=== PATIENT | female | born 1960 | race Caucasian/White ===

== ENCOUNTER 2017-10-24 00:12 | Inpatient (IN) | payer OTHER ==
[2017-10-24] MEDS ORDERED: NORMAL SALINE 1000 ML 1,000 ML IV ONE ×2 (00:20→10:07)
--- NOTE | 2017-10-24 00:21 | ER Document Report ---
ED General - General Stated Complaint: POSSIBLE OVERDOSE Time Seen by Provider: 10/24/17 00:19 Notes: The patient is a 56-year-old female with a past medical history of depression and anxiety who presents by EMS after overdosing on bupropion and Ativan. This was an apparent suicide attempt. The patient apparently denied any additional coingestions. No additional history can be obtained as the patient is obtunded at time of arrival. - Related Data Allergies/Adverse Reactions: No Known Allergies Allergy (Unverified 10/24/17 01:29) Past Medical History - General Information source: Emergency Med Personnel - Social History Smoking Status: Never Smoker Frequency of alcohol use: None Drug Abuse: None Lives with: Family Family History: Reviewed & Not Pertinent Review of Systems - Review of Systems -: Yes ROS unobtainable due to patient's medical condition Physical Exam - Vital signs Vitals: Resp Pulse Ox 18 94 10/24/17 00:34 10/24/17 00:34 Interpretation: Normal Notes: PHYSICAL EXAMINATION: GENERAL: Lethargic, does not answer questions. HEAD: Atraumatic, normocephalic. EYES: Pupils equal round and reactive to light, extraocular movements intact, sclera anicteric, conjunctiva are normal. ENT: nares patent, oropharynx clear without exudates. Moderately dry mucous membranes. NECK: Normal range of motion, supple without lymphadenopathy LUNGS: Breath sounds clear to auscultation bilaterally and equal. No wheezes rales or rhonchi. HEART: Regular rate and rhythm without murmurs ABDOMEN: Soft, nontender, normoactive bowel sounds. No guarding, no rebound. No masses appreciated. EXTREMITIES: no pitting or edema. No cyanosis. NEUROLOGICAL: No focal neurological deficits. Moves all extremities spontaneously. PSYCH: Obtunded, lethargic SKIN: Warm, Dry, normal turgor, no rashes or lesions noted. Course - Re-evaluation Re-evalutation: 10/24/17 00:20 Patient arrives extremely sedated, very lethargic but does awake to noxious stimuli after overdosing on Lorazepam and bupropion. She has been placed immediately on a secured entrance monitor. Poison control be contacted. Seizure precautions will be maintained. We will obtain standard screening laboratories. The patient will require frequent reassessments that she is at risk for airway compromise and would require potential intubation if her mental status continues to deteriorate further. 0100-patient continues to wake to very loud voice or sternal rub but remains quite somnolent. No hypoxia or hypotension 10/24/17 02:03 The patient continues to be very sedated although does purposely grab my hand when I sternal rub her after approximately 5-10 seconds. She continues to be without hypoxia or hypoventilation. Will continue to monitor very closely. 10/24/17 03:07 Patient continues to be very somnolent but does continue to wake to noxious stimuli. She continues on telemetry. - Vital Signs Vital signs: Temp Pulse Resp BP Pulse Ox 14 97/62 L 93 10/24/17 01:58 10/24/17 01:58 10/24/17 01:58 - Laboratory Result Diagrams: 10/24/17 00:53 10/24/17 00:53 Laboratory results interpreted by me: 10/24/17 00:53 Sodium 146.1 H Chloride 111 H Est GFR (Non-Af Amer) 53 L Total Protein 6.0 L Salicylates < 1.0 L Acetaminophen < 10 L - EKG Interpretation by Me Additional EKG results interpreted by me: 10/24/17 03:07 Sinus rhythm. Rate 66. No ST elevations or depressions. QTC is 461. Critical Care Note - Critical Care Note Total time excluding time spent on procedures (mins): 38 Comments: Critical care time spent obtaining history from patient or surrogate, discussions with consultants, development of treatment plan with patient or surrogate, evaluation of patient's response to treatment, examination of patient , ordering and performing treatments and interventions, ordering and review of laboratory studies, re-evaluation of patient's condition, ordering and review of radiographic studies and review of old charts Discharge - Discharge Clinical Impression: Suicide attempt Polysubstance overdose Qualifiers: Encounter type: initial encounter Injury intent: intentional self-harm Qualified Code(s): T50.902A - Poisoning by unspecified drugs, medicaments and biological substances, intentional self-harm, initial encounter Altered mental status Qualifiers: Altered mental status type: stupor Qualified Code(s): R40.1 - Stupor
[2017-10-24 01:08] LABS: ABSOLUTE EOSINOPHILS # (AUTO) 0.1 10^3/uL (0.0-0.6); ABSOLUTE LYMPHOCYTES (AUTO) 1.5 10^3/uL (0.5-4.7); ABSOLUTE MONOCYTES (AUTO) 0.6 10^3/uL (0.1-1.4); BASOPHILS % (AUTO) 0.5 % (0-2); EOSINOPHILS % (AUTO) 1.2 % (0-6); HEMOGLOBIN 13.5 g/dL (12.0-15.5); LYMPHOCYTES % (AUTO) 24.3 % (13-45); MEAN CORPUSCULAR HEMOGLOBIN 31.9 pg (27.0-33.4); MEAN CORPUSCULAR HGB CONC 33.8 g/dL (32.0-36.0); MEAN CORPUSCULAR VOLUME 94 fl (80-97); MONOCYTES % (AUTO) 9.5 % (3-13); PLATELET COUNT 193 10^3/uL (150-450); RED BLOOD COUNT 4.24 10^6/uL (3.72-5.28); RED CELL DISTRIBUTION WIDTH 13.3 % (11.5-14.0); SEGMENTED NEUTROPHILS % (AUTO) 64.5 % (42-78); TOTAL CELLS COUNTED % (AUTO) 100 %; WHITE BLOOD COUNT 6.3 10^3/uL (4.0-10.5)
[2017-10-24 01:22] LABS: ACETAMINOPHEN < 10 ug/mL (10-30); ALANINE AMINOTRANSFERASE 28 U/L (9-52); ALBUMIN 3.9 g/dL (3.5-5.0); ALCOHOL 85 mg/dL (NONE DETECTED); ALKALINE PHOSPHATASE 53 U/L (38-126); ANION GAP 13 (5-19); ASPARTATE AMINO TRANSFERASE 23 U/L (14-36); BILIRUBIN,DIRECT 0.2 mg/dL (0.0-0.4); BILIRUBIN,TOTAL 0.2 mg/dL (0.2-1.3); BLOOD UREA NITROGEN 10 mg/dL (7-20); CARBON DIOXIDE 22 mmol/L (22-30); CHLORIDE 111 mmol/L (98-107); GLUCOSE 85 mg/dL (75-110); SALICYLATE < 1.0 mg/dL (2.0-20.0); SODIUM 146.1 mmol/L (137-145)
[2017-10-24] MEDS: NORMAL SALINE 1000 ML 1,000 ML IV PRN ×7 (07:00→23:51)
[2017-10-24] MEDS ORDERED: AMMONIA INHALANTS 10 AMPUL/BOX IH ONE ×2 (07:44→07:46)
--- NOTE | 2017-10-24 07:48 | EKG REPORT ---
SEVERITY:- ABNORMAL ECG - SINUS RHYTHM INCOMPLETE RIGHT BUNDLE BRANCH BLOCK : Confirmed by: Shawn Paige MD 24-Oct-2017 07:47:29
[2017-10-24] MEDS ORDERED: SUCCINYLCHOLINE CHLORIDE INJ 200 MG/10 ML VIAL IV ONE (07:51)
[2017-10-24] MEDS ORDERED: ETOMIDATE INJ/PF 20 MG/10 ML SDV IV ONE ×3 (07:51→12:08)
[2017-10-24] MEDS ORDERED: PROPOFOL 1,000 MG/100 ML INFUS..BTL IV PRN (07:52)
[2017-10-24] MEDS ORDERED: PROPOFOL INJ 200 MG/20 ML VIAL IV ONE (07:52)
--- NOTE | 2017-10-24 09:45 | RADIOLOGY REPORT (SQ) ---
EXAM DESCRIPTION: CHEST SINGLE VIEW COMPLETED DATE/TIME: 10/24/2017 8:28 am REASON FOR STUDY: post intubation COMPARISON: None. EXAM PARAMETERS: NUMBER OF VIEWS: One view. TECHNIQUE: Single frontal radiographic view of the chest acquired. RADIATION DOSE: NA LIMITATIONS: None. FINDINGS: LUNGS AND PLEURA: No opacities, masses or pneumothorax. No pleural effusion. MEDIASTINUM AND HILAR STRUCTURES: No masses. Contour normal. HEART AND VASCULAR STRUCTURES: Heart normal in size. Normal vasculature. BONES: No acute findings. HARDWARE: Endotracheal tube tip 4 cm above the reyna. Nasogastric tube tip and side port in the sto mach. OTHER: No other significant finding. IMPRESSION: Endotracheal tube and nasogastric tubes in good positioning. Cysts No focal infiltrates TECHNICAL DOCUMENTATION: JOB ID: [id number] [employer]- All Rights Reserved Reading location - IP/workstation name: [email or web address]
[2017-10-24 10:06] LABS: ARTERIAL BLOOD BASE EXCESS -3.2 mmol/L; ARTERIAL BLOOD FIO2 30%; ARTERIAL BLOOD H2CO3 1.44 mmol/L (1.05-1.35); ARTERIAL BLOOD HCO3 23.3 mmol/L (20-26); ARTERIAL BLOOD O2 SATURATION 60.8 % (94-98); ARTERIAL BLOOD PCO2 47.8 mmHg (35-45); ARTERIAL BLOOD PH 7.31 (7.35-7.45); ARTERIAL BLOOD TOTAL CO2 24.8 mmol/L (21-25)
[2017-10-24 10:07] LABS: ARTERIAL BLOOD PO2 34.8 mmHg (80-100)
[2017-10-24 10:10] LABS: APPEARANCE,URINE CLEAR; BILIRUBIN,URINE NEGATIVE (NEGATIVE); COLOR,URINE YELLOW; GLUCOSE, URINE NEGATIVE (NEGATIVE); KETONES,URINE NEGATIVE (NEGATIVE); LEUKOCYTE ESTERASE,URINE NEGATIVE (NEGATIVE); NITRITE,URINE NEGATIVE (NEGATIVE); PROTEIN,URINE NEGATIVE (NEGATIVE); URINE SPECIFIC GRAVITY 1.015; UROBILINOGEN,URINE NEGATIVE mg/dL (<2.0)
[2017-10-24 10:20] LABS: URINE AMPHETAMINES SCREEN NEGATIVE; URINE BARBITURATES SCREEN NEGATIVE; URINE BENZODIAZEPINES SCREEN NEGATIVE; URINE COCAINE SCREEN NEGATIVE; URINE MARIJUANA (THC) SCREEN NEGATIVE; URINE METHADONE SCREEN NEGATIVE; URINE PHENCYCLIDINE SCREEN NEGATIVE
[2017-10-24] MEDS ORDERED: NORMAL SALINE 1000 ML 1,000 ML IV PRN (10:22)
[2017-10-24] MEDS ORDERED: IPRATROPIUM/ALBUTEROL 0.5-2.5 MG/3 ML AMPUL NEB PRN (11:22)
[2017-10-24] MEDS ORDERED: ACETAMINOPHEN 650 MG SUPP.RECT PR PRN (11:22)
[2017-10-24] MEDS ORDERED: ONDANSETRON HCL INJ/PF 4 MG/2 ML SDV IV PRN (11:22)
--- NOTE | 2017-10-24 12:04 | PDOC CONSULTATION ---
Consultation Consult Date: 10/24/17 Attending physician:: UGO ANDRES Consult reason:: Overdose History of Present Illness Admission Date/PCP: 10/24/17 09:49 History of Present Illness: DASHA MATOS is a 56 year old female,Currently intubated and sedated having an overdose of Wellbutrin and being extremely lethargic without a gag reflex she was intubated in the emergency room. She has had a history of depression and was taking bupropion as well as Ativan.Initial concerns were prolongation of her QT on EKG after consultation with poison control sodium bicarbonate was initiated Past Medical History Cardiac Medical History: Reports: Hypertension Psychiatric Medical History: Reports: Depression Social History Information Source: [facility] Records Lives with: Family Smoking Status: Never Smoker - Advance Directive Resuscitation Status: Full Code Family History Parental Family History Reviewed: No Children Family History Reviewed: No Sibling(s) Family History Reviewed.: No Medication/Allergy Home Medications: Bupropion HCl [Wellbutrin Xl 150 mg 24hr Tablet] 150 mg PO DAILY 10/24/17 Bupropion HCl [Wellbutrin Xl 300mg 24hr Tablet] 300 mg PO DAILY 10/24/17 Lorazepam [Ativan 1 mg Tablet] 1 mg PO Q12HP PRN 10/24/17 Allergies/Adverse Reactions: No Known Allergies Allergy (Unverified 10/24/17 01:29) Review of Systems ROS unobtainable: Due to endotracheal tube, Due to mental status Physical Exam Vital Signs: Temp Pulse Resp BP Pulse Ox 95.3 F L 71 14 95/59 L 99 10/24/17 10:57 10/24/17 10:57 10/24/17 10:57 10/24/17 10:57 10/24/17 10:57 Intake & Output 10/23/17 10/24/17 10/25/17 06:59 06:59 06:59 Intake Total 2000 Output Total 800 Balance 1200 General appearance: PRESENT: no acute distress, disheveled, obese. ABSENT: cooperative Head exam: PRESENT: atraumatic, normocephalic Eye exam: PRESENT: conjunctiva pale. ABSENT: nystagmus, periorbital swelling, scleral icterus Mouth exam: PRESENT: dry mucosa, neck supple, tongue midline, other - ET tube in place Neck exam: ABSENT: carotid bruit, JVD, lymphadenopathy, thyromegaly, tracheal deviation, tracheostomy Respiratory exam: PRESENT: decreased breath sounds, prolonged expiratory phas, rales, rhonchi, unlabored. ABSENT: retraction, stridor Cardiovascular exam: PRESENT: RRR, +S1, tachycardia Pulses: PRESENT: normal radial pulses GI/Abdominal exam: PRESENT: hypoactive bowel sounds, soft - [id number] Gentrourinary exam: PRESENT: indwelling catheter Extremities exam: ABSENT: calf tenderness, clubbing, joint swelling Musculoskeletal exam: ABSENT: ambulatory, deformity, dislocation Neurological exam: ABSENT: awake, oriented to person Skin exam: PRESENT: dry, warm Results Impressions: Chest X-Ray 10/24/17 08:17 IMPRESSION: Endotracheal tube and nasogastric tubes in good positioning. Cysts No focal infiltrates Assessment & Plan - Diagnosis (1) Acute respiratory failure Is this a current diagnosis for this admission?: Yes Plan: Unable to protect airway no gag reflex (2) Bupropion overdose Is this a current diagnosis for this admission?: Yes Plan: Follow-up QT intervals every 4 hours bicarb as needed - Time Total Critical Time (Minutes): 55
[2017-10-24] MEDS ORDERED: SUCCINYLCHOLINE CHLORIDE INJ 200 MG/10 ML VIAL ONE (12:08)
[2017-10-24 12:21] LABS: ARTERIAL BLOOD BASE EXCESS -4.1 mmol/L; ARTERIAL BLOOD FIO2 40%; ARTERIAL BLOOD H2CO3 1.01 mmol/L (1.05-1.35); ARTERIAL BLOOD O2 SATURATION 80.5 % (94-98); ARTERIAL BLOOD PCO2 33.5 mmHg (35-45); ARTERIAL BLOOD PH 7.39 (7.35-7.45); ARTERIAL BLOOD PO2 44.3 mmHg (80-100)
--- NOTE | 2017-10-24 12:34 | RADIOLOGY REPORT (SQ) ---
EXAM DESCRIPTION: CT HEAD WITHOUT COMPLETED DATE/TIME: 10/24/2017 11:50 am REASON FOR STUDY: trauma and loss of consciousness COMPARISON: None. TECHNIQUE: Axial images acquired through the brain without intravenous contrast. Images reviewed wi th bone, brain and subdural windows. Additional sagittal and coronal reconstructions were generated. Images stored on PACS. All CT scanners at this facility use dose modulation, iterative reconstruction, and/or weight based d osing when appropriate to reduce radiation dose to as low as reasonably achievable (ALARA). [facility]: Dose Right [facility]: CareDose [facility]: Dose Right [facility]: Teradose 4D [facility]: [employer] RADIATION DOSE: CT Rad equipment meets quality standard of care and radiation dose reduction techniq ues were employed. CTDIvol: 53.2 mGy. DLP: 1017 mGy-cm. mGy. LIMITATIONS: None. FINDINGS: VENTRICLES: Normal size and contour. CEREBRUM: No masses. No hemorrhage. No midline shift. No evidence for acute infarction. Normal gra y/white matter differentiation. No areas of low density in the white matter. CEREBELLUM: No masses. No hemorrhage. No alteration of density. No evidence for acute infarction. EXTRAAXIAL SPACES: No fluid collections. No masses. ORBITS AND GLOBE: No intra- or extraconal masses. Normal contour of globe without masses. CALVARIUM: No fracture. PARANASAL SINUSES: No fluid or mucosal thickening. SOFT TISSUES: No mass or hematoma. OTHER: No other significant finding. IMPRESSION: NORMAL BRAIN CT WITHOUT CONTRAST. EVIDENCE OF ACUTE STROKE: NO. COMMENT: Quality ID # [id number]: Final reports with documentation of one or more dose reduction techniques (e.g., Automated exposure control, adjustment of the mA and/or kV according to patient size, use of iterative reconstruction technique) TECHNICAL DOCUMENTATION: JOB ID: [id number] [employer]- All Rights Reserved Reading location - IP/workstation name: [email or web address]
[2017-10-24 12:58] LABS: ARTERIAL BLOOD BASE EXCESS -5.4 mmol/L; ARTERIAL BLOOD H2CO3 0.81 mmol/L (1.05-1.35); ARTERIAL BLOOD HCO3 17.5 mmol/L (20-26); ARTERIAL BLOOD O2 SATURATION 98.2 % (94-98); ARTERIAL BLOOD PCO2 26.8 mmHg (35-45); ARTERIAL BLOOD PH 7.43 (7.35-7.45); ARTERIAL BLOOD PO2 109.1 mmHg (80-100); ARTERIAL BLOOD TOTAL CO2 18.3 mmol/L (21-25)
[2017-10-24 12:59] LABS: ARTERIAL BLOOD FIO2 28%
[2017-10-24] MEDS: PANTOPRAZOLE SODIUM 40 MG VIAL IV SCH ×2 (13:46→23:08)
--- NOTE | 2017-10-24 14:10 | PSYCHOLOGICAL NOTE ---
Psych Note - Psych Note Psych Note: Reason for consult: Intentional overdose Alfonzo Lee, , The patient is a 56-year-old female with a past medical history of depression and anxiety who presents by EMS after overdosing on bupropion and Ativan. This was an apparent suicide attempt. Patient is currently intubated, please contact behavioral health team upon extubating for evaluation and possible IVC paperwork.
[2017-10-24] MEDS ORDERED: LORAZEPAM INJ 2 MG/1 ML VIAL IV PRN (15:01)
--- NOTE | 2017-10-24 15:02 | PDOC H&P ---
History of Present Illness Admission Date/PCP: 10/24/17 09:49 Out of town, patient lives in [place] Psychiatrist Dr. Fleming Patient complains of: Intentional drug overdose, suicide attempt History of Present Illness: DASHA MATOS is a 56 year old female who was brought in by EMS after she swallowed 100 tablets of Wellbutrin and an unknown amount of Ativan. The patient was very somnolent on admission with minimal response to sternal rub. She did not have a gag reflex and was intubated for airway protection. The patient was hypothermic and was given warm IV fluids and David hugger placed. I spoke to her Mr. Alfonzo Matos, phone #[phone]. He states that the patient has a long history of schizophrenia, bipolar disorder , OCD and depression and anxiety. He is stated that she did not smoke and only drank alcohol occasionally. Last night they were socializing with relatives and she drank 4-5 glasses of wine. Around midnight she had an argument with her and became very angry stormed out and swallowed her pills. She asked her family to call EMS. Poison control recommended monitoring the EKG every 4 hours and to treat with IV bicarb for QRS duration 140 or greater. Past Medical History Cardiac Medical History: Reports: Hypertension Psychiatric Medical History: Reports: Depression, Schizoaffective Disorder Social History Lives with: Family Smoking Status: Never Smoker Frequency of Alcohol Use: Occasional Hx Recreational Drug Use: No - Advance Directive Resuscitation Status: Full Code Family History Family History: Hypertension Parental Family History Reviewed: No - Unable to patient intubated Children Family History Reviewed: No Sibling(s) Family History Reviewed.: No Medication/Allergy Home Medications: Bupropion HCl [Wellbutrin Xl 150 mg 24hr Tablet] 150 mg PO DAILY 10/24/17 Bupropion HCl [Wellbutrin Xl 300mg 24hr Tablet] 300 mg PO DAILY 10/24/17 Lorazepam [Ativan 1 mg Tablet] 1 mg PO Q12HP PRN 10/24/17 Allergies/Adverse Reactions: No Known Allergies Allergy (Unverified 10/24/17 01:29) Review of Systems ROS unobtainable: Due to endotracheal tube Physical Exam Vital Signs: Temp Pulse Resp BP Pulse Ox 97.2 F 81 14 111/77 100 10/24/17 12:00 10/24/17 12:00 10/24/17 14:00 10/24/17 13:48 10/24/17 14:00 Intake & Output 10/23/17 10/24/17 10/25/17 06:59 06:59 06:59 Intake Total 2000 Output Total 1300 Balance 700 Weight 78.8 kg General appearance: PRESENT: well-developed, well-nourished Head exam: PRESENT: normocephalic Eye exam: PRESENT: PERRLA. ABSENT: scleral icterus Ear exam: PRESENT: normal external ear exam Neck exam: PRESENT: other - endotracheal tube Respiratory exam: PRESENT: symmetrical, unlabored. ABSENT: wheezes Cardiovascular exam: PRESENT: RRR GI/Abdominal exam: PRESENT: normal bowel sounds, soft. ABSENT: tenderness Rectal exam: PRESENT: deferred Neurological exam: PRESENT: other - no response to sternal rub Skin exam: ABSENT: petechiae Results Laboratory Results: 10/24/17 10/24/17 12:00 12:50 Carbonic Acid 1.01 L 0.81 L HCO3/H2CO3 Ratio 19:1 21:1 ABG pH 7.39 7.43 ABG pCO2 33.5 L 26.8 L ABG pO2 44.3 L 109.1 H ABG HCO3 20.0 17.5 L ABG O2 Saturation 80.5 L 98.2 H ABG Base Excess -4.1 -5.4 FiO2 40% 28% Impressions: Head CT 10/24/17 00:00 IMPRESSION: NORMAL BRAIN CT WITHOUT CONTRAST. EVIDENCE OF ACUTE STROKE: NO. Chest X-Ray 10/24/17 08:17 IMPRESSION: Endotracheal tube and nasogastric tubes in good positioning. Cysts No focal infiltrates Assessment & Plan - Diagnosis (1) Acute respiratory failure Qualifiers: Respiratory failure complication: hypoxia Qualified Code(s): J96.01 - Acute respiratory failure with hypoxia Is this a current diagnosis for this admission?: Yes Plan: Due to intentional medication overdose. Continue to monitor on ventilator. Pulmonology consult requested. (2) Bupropion overdose Is this a current diagnosis for this admission?: Yes Plan: Seizure precautions. Monitor EKG. Continue IV fluids. (3) Polysubstance overdose Qualifiers: Encounter type: initial encounter Injury intent: intentional self-harm Qualified Code(s): T50.902A - Poisoning by unspecified drugs, medicaments and biological substances, intentional self-harm, initial encounter Is this a current diagnosis for this admission?: Yes Plan: As above. (4) Suicide attempt Is this a current diagnosis for this admission?: Yes Plan: Patient has been involuntarily committed. Psych eval after extubation. - Time Time Spent: Greater than 70 Minutes
[2017-10-24 15:43] LABS: ABSOLUTE EOSINOPHILS # (AUTO) 0.1 10^3/uL (0.0-0.6); ABSOLUTE LYMPHOCYTES (AUTO) 1.2 10^3/uL (0.5-4.7); ABSOLUTE MONOCYTES (AUTO) 0.8 10^3/uL (0.1-1.4); ABSOLUTE NEUT (AUTO) 6.7 10^3/uL (1.7-8.2); BASOPHILS % (AUTO) 0.3 % (0-2); EOSINOPHILS % (AUTO) 0.6 % (0-6); HEMATOCRIT 37.7 % (36.0-47.0); HEMOGLOBIN 12.5 g/dL (12.0-15.5); LYMPHOCYTES % (AUTO) 14.1 % (13-45); MEAN CORPUSCULAR HEMOGLOBIN 31.8 pg (27.0-33.4); MEAN CORPUSCULAR HGB CONC 33.3 g/dL (32.0-36.0); MEAN CORPUSCULAR VOLUME 96 fl (80-97); PLATELET COUNT 164 10^3/uL (150-450); RED BLOOD COUNT 3.94 10^6/uL (3.72-5.28); RED CELL DISTRIBUTION WIDTH 13.7 % (11.5-14.0); TOTAL CELLS COUNTED % (AUTO) 100 %; WHITE BLOOD COUNT 8.9 10^3/uL (4.0-10.5)
--- NOTE | 2017-10-24 16:43 | EKG REPORT ---
SEVERITY:- ABNORMAL ECG - SINUS RHYTHM IVCD, CONSIDER ATYPICAL RBBB NONSPECIFIC ST-T CHANGES- INFERIOR LEADS : Confirmed by: Shawn Paige MD 24-Oct-2017 16:43:03
--- NOTE | 2017-10-24 16:44 | EKG REPORT ---
SEVERITY:- ABNORMAL ECG - SINUS RHYTHM IVCD, CONSIDER ATYPICAL RBBB : Confirmed by: Shawn Paige MD 24-Oct-2017 16:43:29
--- NOTE | 2017-10-24 16:44 | EKG REPORT ---
SEVERITY:- ABNORMAL ECG - SINUS RHYTHM INCOMPLETE RIGHT BUNDLE BRANCH BLOCK : Confirmed by: Shawn Paige MD 24-Oct-2017 16:43:18
[2017-10-24 17:40] LABS: ALANINE AMINOTRANSFERASE 35 U/L (9-52); ALKALINE PHOSPHATASE 50 U/L (38-126); ANION GAP 9 (5-19); ASPARTATE AMINO TRANSFERASE 38 U/L (14-36); BILIRUBIN,DIRECT 0.2 mg/dL (0.0-0.4); BILIRUBIN,TOTAL 0.2 mg/dL (0.2-1.3); BLOOD UREA NITROGEN 8 mg/dL (7-20); CALCIUM 8.2 mg/dL (8.4-10.2); CARBON DIOXIDE 18 mmol/L (22-30); CHLORIDE 116 mmol/L (98-107); GLUCOSE 75 mg/dL (75-110); POTASSIUM 3.8 mmol/L (3.6-5.0); SODIUM 143.3 mmol/L (137-145); TOTAL PROTEIN 5.1 g/dL (6.3-8.2)
[2017-10-24] MEDS: PROPOFOL 1,000 MG/100 ML INFUS..BTL IV PRN (23:08)
--- NOTE | 2017-10-25 00:11 | EKG REPORT ---
SEVERITY:- ABNORMAL ECG - SINUS RHYTHM INCOMPLETE RIGHT BUNDLE BRANCH BLOCK : Confirmed by: Shawn Paige MD 25-Oct-2017 00:11:02
[2017-10-25] MEDS ORDERED: SODIUM BICARBONATE 8.4% INJ 50 MEQ/50 ML DISP.SYRIN ONE ×2 (03:13→19:54)
[2017-10-25] MEDS ORDERED: SODIUM BICARBONATE 8.4% INJ 50 MEQ/50 ML DISP.SYRIN IV ONE ×2 (03:15→20:00)
[2017-10-25 04:09] LABS: ABSOLUTE LYMPHOCYTES (AUTO) 1.3 10^3/uL (0.5-4.7); ABSOLUTE NEUT (AUTO) 9.6 10^3/uL (1.7-8.2); BASOPHILS % (AUTO) 0.3 % (0-2); EOSINOPHILS % (AUTO) 0.3 % (0-6); HEMATOCRIT 37.4 % (36.0-47.0); HEMOGLOBIN 12.7 g/dL (12.0-15.5); MEAN CORPUSCULAR HEMOGLOBIN 31.9 pg (27.0-33.4); MEAN CORPUSCULAR HGB CONC 33.9 g/dL (32.0-36.0); MEAN CORPUSCULAR VOLUME 94 fl (80-97); PLATELET COUNT 151 10^3/uL (150-450); RED BLOOD COUNT 3.97 10^6/uL (3.72-5.28); RED CELL DISTRIBUTION WIDTH 13.3 % (11.5-14.0); SEGMENTED NEUTROPHILS % (AUTO) 80.4 % (42-78); TOTAL CELLS COUNTED % (AUTO) 100 %; WHITE BLOOD COUNT 11.9 10^3/uL (4.0-10.5)
[2017-10-25 04:17] LABS: INTERNATIONAL RATION (INR) 0.96; PROTHROMBIN TIME 13.3 SEC (11.4-15.4)
[2017-10-25 04:18] LABS: PARTIAL THROMBOPLASTIN TIME 28.6 SEC (23.5-35.8)
[2017-10-25 04:35] LABS: ALANINE AMINOTRANSFERASE 35 U/L (9-52); ALKALINE PHOSPHATASE 52 U/L (38-126); ANION GAP 10 (5-19); ASPARTATE AMINO TRANSFERASE 35 U/L (14-36); BILIRUBIN,DIRECT 0.3 mg/dL (0.0-0.4); BILIRUBIN,TOTAL 0.3 mg/dL (0.2-1.3); BLOOD UREA NITROGEN 8 mg/dL (7-20); CALCIUM 8.5 mg/dL (8.4-10.2); CARBON DIOXIDE 20 mmol/L (22-30); CHLORIDE 114 mmol/L (98-107); CREATINE KINASE 656 U/L (30-135); GLUCOSE 79 mg/dL (75-110); LIPASE 44.6 U/L (23-300); PHOSPHORUS 3.1 mg/dL (2.5-4.5); POTASSIUM 3.5 mmol/L (3.6-5.0); SODIUM 144.1 mmol/L (137-145); TOTAL PROTEIN 5.1 g/dL (6.3-8.2); TRIGLYCERIDES 156 mg/dL (<150)
[2017-10-25 05:20] LABS: ARTERIAL BLOOD FIO2 28%; ARTERIAL BLOOD H2CO3 0.87 mmol/L (1.05-1.35); ARTERIAL BLOOD HCO3 20.6 mmol/L (20-26); ARTERIAL BLOOD O2 SATURATION 97.9 % (94-98); ARTERIAL BLOOD PH 7.47 (7.35-7.45); ARTERIAL BLOOD PO2 98.5 mmHg (80-100); ARTERIAL BLOOD TOTAL CO2 21.5 mmol/L (21-25)
[2017-10-25] MEDS: NORMAL SALINE 1000 ML 1,000 ML IV PRN ×3 (06:41→19:57)
--- NOTE | 2017-10-25 08:10 | RADIOLOGY REPORT (SQ) ---
EXAM DESCRIPTION: CHEST SINGLE VIEW COMPLETED DATE/TIME: 10/25/2017 6:47 am REASON FOR STUDY: resp failure COMPARISON: AP chest 10/24/2017, 0824 hours EXAM PARAMETERS: NUMBER OF VIEWS: One view. TECHNIQUE: Single frontal radiographic view of the chest acquired. RADIATION DOSE: NA LIMITATIONS: None. FINDINGS: LUNGS AND PLEURA: Minimal left retrocardiac airspace disease likely atelectasis. Lungs ot herwise clear. No pleural effusion or pneumothorax. MEDIASTINUM AND HILAR STRUCTURES: No masses. Contour normal. HEART AND VASCULAR STRUCTURES: Heart normal in size. Normal vasculature. BONES: No acute findings. HARDWARE: Endotracheal tube, nasogastric tube in good positioning OTHER: No other significant finding. IMPRESSION: Tubes in good positioning. Minimal left retrocardiac airspace disease, stable TECHNICAL DOCUMENTATION: JOB ID: [id number] [employer]- All Rights Reserved Reading location - IP/workstation name: [email or web address]
--- NOTE | 2017-10-25 08:22 | EKG REPORT ---
SEVERITY:- ABNORMAL ECG - SINUS RHYTHM INCOMPLETE RIGHT BUNDLE BRANCH BLOCK QRS DURATION [address]-T CHANGES- INFERIOR LEADS : Confirmed by: Shawn Paige MD 25-Oct-2017 08:22:33
--- NOTE | 2017-10-25 08:27 | EKG REPORT ---
SEVERITY:- ABNORMAL ECG - SINUS RHYTHM IVCD, RBBB QRS DURATION [address]-T CHANGES- INFERIOR LEADS : Confirmed by: Shawn Paige MD 25-Oct-2017 08:26:42
--- NOTE | 2017-10-25 09:37 | EKG REPORT ---
SEVERITY:- ABNORMAL ECG - SINUS RHYTHM IVCD, CONSIDER ATYPICAL RBBB QRSD 120MS. : Confirmed by: Shawn Paige MD 25-Oct-2017 09:37:03
[2017-10-25] MEDS ORDERED: POTASSI CL 20 MEQ/50 ML RIDER 20 MEQ/50 ML RTUPB IV ONE (11:14)
[2017-10-25] MEDS ORDERED: MAGNESIUM SULFATE/D5W 1 GM/100 ML RTUPB IV ONE (11:14)
[2017-10-25] MEDS: PANTOPRAZOLE SODIUM 40 MG VIAL IV SCH ×2 (11:17→23:39)
--- NOTE | 2017-10-25 11:27 | PDOC PROGRESS REPORT ---
Subjective Progress Note for:: 10/25/17 Subjective:: Admitted for Wellbutrin and Ativan overdose. Remains intubated for airway protection. No currently on sedation. Slowly waking up. Was responding to questions by ICU team earlier this morning. and [id number] at bedside. Reason For Visit: DRUG OVERDOSE Physical Exam Vital Signs: Temp Pulse Resp BP Pulse Ox 100.2 F 80 15 122/81 100 10/25/17 05:42 10/25/17 08:00 10/25/17 11:00 10/25/17 10:48 10/25/17 11:00 Intake & Output 10/24/17 10/25/17 10/26/17 06:59 06:59 06:59 Intake Total 4956 Output Total 2595 250 Balance 2361 -250 Weight 81 kg General appearance: PRESENT: no acute distress - Criticially ill on ventilator support, other Mouth exam: PRESENT: dry mucosa, other - ETT in place Respiratory exam: PRESENT: unlabored Cardiovascular exam: PRESENT: +S1, +S2. ABSENT: tachycardia GI/Abdominal exam: PRESENT: normal bowel sounds, soft. ABSENT: tenderness Neurological exam: PRESENT: other - Not responding to commands at time of my exam. Opened eyes. Skin exam: PRESENT: dry, intact Results Laboratory Results: 10/25/17 03:56 10/25/17 03:56 10/24/17 10/24/17 10/24/17 12:00 12:50 15:20 WBC 8.9 RBC 3.94 Hgb 12.5 Hct 37.7 MCV 96 MCH 31.8 MCHC 33.3 RDW 13.7 Plt Count 164 Seg Neutrophils % 76.0 Lymphocytes % 14.1 Monocytes % 9.0 Eosinophils % 0.6 Basophils % 0.3 Absolute Neutrophils 6.7 Absolute Lymphocytes 1.2 Absolute Monocytes 0.8 Absolute Eosinophils 0.1 Absolute Basophils 0.0 Carbonic Acid 1.01 L 0.81 L HCO3/H2CO3 Ratio 19:1 21:1 ABG pH 7.39 7.43 ABG pCO2 33.5 L 26.8 L ABG pO2 44.3 L 109.1 H ABG HCO3 20.0 17.5 L ABG O2 Saturation 80.5 L 98.2 H ABG Base Excess -4.1 -5.4 FiO2 40% 28% Sodium Potassium Chloride Carbon Dioxide Anion Gap BUN Creatinine Est GFR ( Amer) Est GFR (Non-Af Amer) Glucose Calcium Phosphorus Magnesium Total Bilirubin AST ALT Alkaline Phosphatase Total Protein Albumin Triglycerides Lipase TSH 10/24/17 10/24/17 10/24/17 15:20 16:27 17:15 WBC RBC Hgb Hct MCV MCH MCHC RDW Plt Count Seg Neutrophils % Lymphocytes % Monocytes % Eosinophils % Basophils % Absolute Neutrophils Absolute Lymphocytes Absolute Monocytes Absolute Eosinophils Absolute Basophils Carbonic Acid HCO3/H2CO3 Ratio ABG pH ABG pCO2 ABG pO2 ABG HCO3 ABG O2 Saturation ABG Base Excess FiO2 Sodium Cancelled Cancelled 143.3 Potassium Cancelled Cancelled 3.8 Chloride Cancelled Cancelled 116 H Carbon Dioxide Cancelled Cancelled 18 L Anion Gap Cancelled Cancelled 9 BUN Cancelled Cancelled 8 Creatinine Cancelled Cancelled 0.60 Est GFR ( Amer) Cancelled Cancelled > 60 Est GFR (Non-Af Amer) Cancelled Cancelled > 60 Glucose Cancelled Cancelled 75 Calcium Cancelled Cancelled 8.2 L Phosphorus Magnesium Total Bilirubin Cancelled Cancelled 0.2 AST Cancelled Cancelled 38 H ALT Cancelled Cancelled 35 Alkaline Phosphatase Cancelled Cancelled 50 Total Protein Cancelled Cancelled 5.1 L Albumin Cancelled Cancelled 3.0 L Triglycerides Lipase TSH 10/25/17 10/25/17 10/25/17 03:56 03:56 03:56 WBC 11.9 H RBC 3.97 Hgb 12.7 Hct 37.4 MCV 94 MCH 31.9 MCHC 33.9 RDW 13.3 Plt Count 151 Seg Neutrophils % 80.4 H Lymphocytes % 11.0 L Monocytes % 8.0 Eosinophils % 0.3 Basophils % 0.3 Absolute Neutrophils 9.6 H Absolute Lymphocytes 1.3 Absolute Monocytes 1.0 Absolute Eosinophils 0.0 Absolute Basophils 0.0 Carbonic Acid HCO3/H2CO3 Ratio ABG pH ABG pCO2 ABG pO2 ABG HCO3 ABG O2 Saturation ABG Base Excess FiO2 Sodium 144.1 Potassium 3.5 L Chloride 114 H Carbon Dioxide 20 L Anion Gap 10 BUN 8 Creatinine 0.63 Est GFR ( Amer) > 60 Est GFR (Non-Af Amer) > 60 Glucose 79 Calcium 8.5 Phosphorus 3.1 Magnesium 1.8 Total Bilirubin 0.3 AST 35 ALT 35 Alkaline Phosphatase 52 Total Protein 5.1 L Albumin 3.0 L Triglycerides 156 H Lipase 44.6 TSH 2.52 10/25/17 05:00 WBC RBC Hgb Hct MCV MCH MCHC RDW Plt Count Seg Neutrophils % Lymphocytes % Monocytes % Eosinophils % Basophils % Absolute Neutrophils Absolute Lymphocytes Absolute Monocytes Absolute Eosinophils Absolute Basophils Carbonic Acid 0.87 L HCO3/H2CO3 Ratio 23:1 ABG pH 7.47 H ABG pCO2 29.0 L ABG pO2 98.5 ABG HCO3 20.6 ABG O2 Saturation 97.9 ABG Base Excess -2.0 FiO2 28% Sodium Potassium Chloride Carbon Dioxide Anion Gap BUN Creatinine Est GFR ( Amer) Est GFR (Non-Af Amer) Glucose Calcium Phosphorus Magnesium Total Bilirubin AST ALT Alkaline Phosphatase Total Protein Albumin Triglycerides Lipase TSH 10/25/17 10/25/17 03:56 03:56 Creatine Kinase 656 H NT-Pro-B Natriuret Pep 873 Impressions: Head CT 10/24/17 00:00 IMPRESSION: NORMAL BRAIN CT WITHOUT CONTRAST. EVIDENCE OF ACUTE STROKE: NO. Chest X-Ray 10/25/17 06:00 IMPRESSION: Tubes in good positioning. Minimal left retrocardiac airspace disease, stable Assessment & Plan - Diagnosis (1) Bupropion overdose Is this a current diagnosis for this admission?: Yes Plan: Reportedly took ~100 tabs. On Seizure precautions. Position control following. Monitoring EKG, per recommendations, give Bicarb QRS>140 - Continue q4hour EKGs - Reviewed EKG from 10AM, no change from previous (2) Acute respiratory failure Qualifiers: Respiratory failure complication: hypoxia Qualified Code(s): J96.01 - Acute respiratory failure with hypoxia Is this a current diagnosis for this admission?: Yes Plan: Secondary to medication overdose. Remains on ventilator. Appears to be waking up. Weaning trial when appropriate. Appreciate ICU team support. (3) Altered mental status Qualifiers: Altered mental status type: stupor Qualified Code(s): R40.1 - Stupor Is this a current diagnosis for this admission?: Yes Plan: Due to overdose. Will monitor. (4) Polysubstance overdose Qualifiers: Encounter type: initial encounter Injury intent: intentional self-harm Qualified Code(s): T50.902A - Poisoning by unspecified drugs, medicaments and biological substances, intentional self-harm, initial encounter Is this a current diagnosis for this admission?: Yes Plan: Per above. Took Wellbutrin and Ativan. (5) Suicide attempt Is this a current diagnosis for this admission?: Yes Plan: Patient has history of bipolar disorder/schizophrenia per chart review. Of note , currently resides in [place] and was on vacation in [place] with family. - Has been IVC-ed - Will need Psychiatry evaluation post-extubation, likely in the next 24-36 hours. - Time Time Spent with patient: 15-24 minutes Medications reviewed and adjusted accordingly: Yes
[2017-10-25] MEDS: POTASSIUM CHLORIDE 20 MEQ/50 ML RTU IV SCH ×2 (11:30→13:41)
[2017-10-25] MEDS: MAGNESIUM SULFATE 1 GM/D5W 100 ML IV SCH ×2 (11:30→12:23)
--- NOTE | 2017-10-25 15:47 | EKG REPORT ---
SEVERITY:- ABNORMAL ECG - SINUS RHYTHM NONSPECIFIC INTRAVENTRICULAR CONDUCTION DELAY QRS DURATION 114 MS BY COMPUTER : Confirmed by: Shawn Paige MD 25-Oct-2017 15:47:23
[2017-10-25 16:13] LABS: ANION GAP 10 (5-19); BLOOD UREA NITROGEN 7 mg/dL (7-20); CALCIUM 8.3 mg/dL (8.4-10.2); CARBON DIOXIDE 19 mmol/L (22-30); CHLORIDE 112 mmol/L (98-107); GLUCOSE 98 mg/dL (75-110); SODIUM 140.6 mmol/L (137-145)
[2017-10-25] MEDS: ENOXAPARIN SODIUM INJ 30 MG/0.3 ML DISP.SYRIN SUBCUT SCH (17:03)
--- NOTE | 2017-10-25 21:28 | EKG REPORT ---
SEVERITY:- ABNORMAL ECG - SINUS RHYTHM IVCD, CONSIDER ATYPICAL RBBB QRS DURATION 128MS. NONSPECIFIC ST-T CHANGES- INFERIOR LEADS : Confirmed by: Shawn Paige MD 25-Oct-2017 21:28:29
--- NOTE | 2017-10-25 21:30 | EKG REPORT ---
SEVERITY:- ABNORMAL ECG - SINUS RHYTHM INCOMPLETE RIGHT BUNDLE BRANCH BLOCK QRS DURATION [address]-T CHANGES- INFERIOR LEADS : Confirmed by: Shawn Paige MD 25-Oct-2017 21:29:50
[2017-10-26] MEDS: NORMAL SALINE 1000 ML 1,000 ML IV PRN ×3 (02:42→19:50)
[2017-10-26 04:42] LABS: ABSOLUTE LYMPHOCYTES (AUTO) 0.9 10^3/uL (0.5-4.7); ABSOLUTE MONOCYTES (AUTO) 0.7 10^3/uL (0.1-1.4); ABSOLUTE NEUT (AUTO) 9.6 10^3/uL (1.7-8.2); BASOPHILS % (AUTO) 0.2 % (0-2); HEMOGLOBIN 12.3 g/dL (12.0-15.5); LYMPHOCYTES % (AUTO) 7.7 % (13-45); MEAN CORPUSCULAR HGB CONC 34.1 g/dL (32.0-36.0); MEAN CORPUSCULAR VOLUME 94 fl (80-97); MONOCYTES % (AUTO) 6.6 % (3-13); PLATELET COUNT 159 10^3/uL (150-450); RED BLOOD COUNT 3.83 10^6/uL (3.72-5.28); RED CELL DISTRIBUTION WIDTH 13.3 % (11.5-14.0); SEGMENTED NEUTROPHILS % (AUTO) 85.5 % (42-78); TOTAL CELLS COUNTED % (AUTO) 100 %; WHITE BLOOD COUNT 11.2 10^3/uL (4.0-10.5)
[2017-10-26 05:30] LABS: ANION GAP 10 (5-19); BLOOD UREA NITROGEN 6 mg/dL (7-20); CALCIUM 8.4 mg/dL (8.4-10.2); CARBON DIOXIDE 21 mmol/L (22-30); CHLORIDE 109 mmol/L (98-107); GLUCOSE 107 mg/dL (75-110); PHOSPHORUS 2.4 mg/dL (2.5-4.5); POTASSIUM 3.2 mmol/L (3.6-5.0); SODIUM 140.4 mmol/L (137-145)
[2017-10-26] MEDS: ENOXAPARIN SODIUM INJ 30 MG/0.3 ML DISP.SYRIN SUBCUT SCH ×2 (05:35→18:42)
[2017-10-26 06:08] LABS: ARTERIAL BLOOD H2CO3 0.84 mmol/L (1.05-1.35); ARTERIAL BLOOD HCO3 21.1 mmol/L (20-26); ARTERIAL BLOOD O2 SATURATION 98.4 % (94-98); ARTERIAL BLOOD PO2 109.9 mmHg (80-100)
[2017-10-26 06:14] LABS: ARTERIAL BLOOD FIO2 28%
[2017-10-26] MEDS ORDERED: POTASSIUM CHLORIDE 20 MEQ/15 ML UDCUP NG ONE (07:00)
[2017-10-26] MEDS ORDERED: POTASSIUM CHLORIDE 20 MEQ/50 ML RTU IV ONE (07:00)
--- NOTE | 2017-10-26 08:40 | RADIOLOGY REPORT (SQ) ---
EXAM DESCRIPTION: CHEST SINGLE VIEW COMPLETED DATE/TIME: 10/26/2017 6:41 am REASON FOR STUDY: resp failure COMPARISON: 10/25/2017 EXAM PARAMETERS: NUMBER OF VIEWS: One view. TECHNIQUE: Single frontal radiographic view of the chest acquired. RADIATION DOSE: NA LIMITATIONS: None. FINDINGS: LUNGS AND PLEURA: Stable appearance to the right infrahilar slight atelectasis or infiltr ate. The left lung is stable in appearance. No pleural effusion or pneumothorax. MEDIASTINUM AND HILAR STRUCTURES: No masses. Contour normal. HEART AND VASCULAR STRUCTURES: Heart normal in size. Normal vasculature. BONES: No acute findings. HARDWARE: Support tubes are stable in position. OTHER: No other significant finding. IMPRESSION: 1 No significant interval change in the right infrahilar atelectasis or infiltrate. 2 Support tubes are in stable position. TECHNICAL DOCUMENTATION: JOB ID: [id number] [employer]- All Rights Reserved Reading location - IP/workstation name: [email or web address]
[2017-10-26] MEDS: PROPOFOL 1,000 MG/100 ML INFUS..BTL IV PRN ×4 (10:27→23:27)
--- NOTE | 2017-10-26 11:23 | PDOC PROGRESS REPORT ---
Subjective Progress Note for:: 10/25/17 Subjective:: Intubated but arousable Reason For Visit: DRUG OVERDOSE Physical Exam Vital Signs: Temp Pulse Resp BP Pulse Ox 100.2 F 83 15 117/75 99 10/25/17 05:42 10/25/17 00:00 10/25/17 06:00 10/25/17 05:47 10/25/17 06:00 Intake & Output 10/24/17 10/25/17 10/26/17 06:59 06:59 06:59 Intake Total 4956 Output Total 2595 Balance 2361 Weight 81 kg General appearance: PRESENT: no acute distress, disheveled, obese. ABSENT: cooperative Head exam: PRESENT: atraumatic, normocephalic Eye exam: PRESENT: conjunctiva pale, EOMI. ABSENT: nystagmus, periorbital swelling, scleral icterus Mouth exam: PRESENT: dry mucosa, neck supple, tongue midline, other - ET tube in place Neck exam: ABSENT: carotid bruit, JVD, lymphadenopathy, thyromegaly, tracheal deviation, tracheostomy Respiratory exam: PRESENT: decreased breath sounds, prolonged expiratory phas, rhonchi, unlabored. ABSENT: rales, retraction, stridor Cardiovascular exam: PRESENT: RRR, +S1, +S2 Pulses: PRESENT: normal radial pulses GI/Abdominal exam: PRESENT: hypoactive bowel sounds, soft Extremities exam: ABSENT: calf tenderness, clubbing, joint swelling Musculoskeletal exam: ABSENT: deformity, dislocation Neurological exam: PRESENT: awake, oriented to person Psychiatric exam: PRESENT: flat affect Skin exam: PRESENT: dry, warm Results Laboratory Results: 10/25/17 03:56 10/25/17 03:56 10/24/17 10/24/17 10/24/17 12:00 12:50 15:20 WBC 8.9 RBC 3.94 Hgb 12.5 Hct 37.7 MCV 96 MCH 31.8 MCHC 33.3 RDW 13.7 Plt Count 164 Seg Neutrophils % 76.0 Lymphocytes % 14.1 Monocytes % 9.0 Eosinophils % 0.6 Basophils % 0.3 Absolute Neutrophils 6.7 Absolute Lymphocytes 1.2 Absolute Monocytes 0.8 Absolute Eosinophils 0.1 Absolute Basophils 0.0 Carbonic Acid 1.01 L 0.81 L HCO3/H2CO3 Ratio 19:1 21:1 ABG pH 7.39 7.43 ABG pCO2 33.5 L 26.8 L ABG pO2 44.3 L 109.1 H ABG HCO3 20.0 17.5 L ABG O2 Saturation 80.5 L 98.2 H ABG Base Excess -4.1 -5.4 FiO2 40% 28% Sodium Potassium Chloride Carbon Dioxide Anion Gap BUN Creatinine Est GFR ( Amer) Est GFR (Non-Af Amer) Glucose Calcium Phosphorus Magnesium Total Bilirubin AST ALT Alkaline Phosphatase Total Protein Albumin Triglycerides Lipase [facility] 10/24/17 10/24/17 10/24/17 15:20 16:27 17:15 WBC RBC Hgb Hct MCV MCH MCHC RDW Plt Count Seg Neutrophils % Lymphocytes % Monocytes % Eosinophils % Basophils % Absolute Neutrophils Absolute Lymphocytes Absolute Monocytes Absolute Eosinophils Absolute Basophils Carbonic Acid HCO3/H2CO3 Ratio ABG pH ABG pCO2 ABG pO2 ABG HCO3 ABG O2 Saturation ABG Base Excess FiO2 Sodium Cancelled Cancelled 143.3 Potassium Cancelled Cancelled 3.8 Chloride Cancelled Cancelled 116 H Carbon Dioxide Cancelled Cancelled 18 L Anion Gap Cancelled Cancelled 9 BUN Cancelled Cancelled 8 Creatinine Cancelled Cancelled 0.60 Est GFR ( Amer) Cancelled Cancelled > 60 Est GFR (Non-Af Amer) Cancelled Cancelled > 60 Glucose Cancelled Cancelled 75 Calcium Cancelled Cancelled 8.2 L Phosphorus Magnesium Total Bilirubin Cancelled Cancelled 0.2 AST Cancelled Cancelled 38 H ALT Cancelled Cancelled 35 Alkaline Phosphatase Cancelled Cancelled 50 Total Protein Cancelled Cancelled 5.1 L Albumin Cancelled Cancelled 3.0 L Triglycerides Lipase [facility] 10/25/17 10/25/17 10/25/17 03:56 03:56 03:56 WBC 11.9 H RBC 3.97 Hgb 12.7 Hct 37.4 MCV 94 MCH 31.9 MCHC 33.9 RDW 13.3 Plt Count 151 Seg Neutrophils % 80.4 H Lymphocytes % 11.0 L Monocytes % 8.0 Eosinophils % 0.3 Basophils % 0.3 Absolute Neutrophils 9.6 H Absolute Lymphocytes 1.3 Absolute Monocytes 1.0 Absolute Eosinophils 0.0 Absolute Basophils 0.0 Carbonic Acid HCO3/H2CO3 Ratio ABG pH ABG pCO2 ABG pO2 ABG HCO3 ABG O2 Saturation ABG Base Excess FiO2 Sodium 144.1 Potassium 3.5 L Chloride 114 H Carbon Dioxide 20 L Anion Gap 10 BUN 8 Creatinine 0.63 Est GFR ( Amer) > 60 Est GFR (Non-Af Amer) > 60 Glucose 79 Calcium 8.5 Phosphorus 3.1 Magnesium 1.8 Total Bilirubin 0.3 AST 35 ALT 35 Alkaline Phosphatase 52 Total Protein 5.1 L Albumin 3.0 L Triglycerides 156 H Lipase 44.6 TSH 2.52 10/25/17 05:00 WBC RBC Hgb Hct MCV MCH MCHC RDW Plt Count Seg Neutrophils % Lymphocytes % Monocytes % Eosinophils % Basophils % Absolute Neutrophils Absolute Lymphocytes Absolute Monocytes Absolute Eosinophils Absolute Basophils Carbonic Acid 0.87 L HCO3/H2CO3 Ratio 23:1 ABG pH 7.47 H ABG pCO2 29.0 L ABG pO2 98.5 ABG HCO3 20.6 ABG O2 Saturation 97.9 ABG Base Excess -2.0 FiO2 28% Sodium Potassium Chloride Carbon Dioxide Anion Gap BUN Creatinine Est GFR ( Amer) Est GFR (Non-Af Amer) Glucose Calcium Phosphorus Magnesium Total Bilirubin AST ALT Alkaline Phosphatase Total Protein Albumin Triglycerides Lipase TSH 10/25/17 10/25/17 03:56 03:56 Creatine Kinase 656 H NT-Pro-B Natriuret Pep 873 Impressions: Head CT 10/24/17 00:00 IMPRESSION: NORMAL BRAIN CT WITHOUT CONTRAST. EVIDENCE OF ACUTE STROKE: NO. Assessment & Plan - Diagnosis (1) Acute respiratory failure Qualifiers: Respiratory failure complication: hypoxia Qualified Code(s): J96.01 - Acute respiratory failure with hypoxia Is this a current diagnosis for this admission?: Yes Plan: Continue to oxygenate and ventilate (2) Bupropion overdose Is this a current diagnosis for this admission?: Yes Plan: Follow-up QT intervals every 4 hours bicarb as needed - Time Total Critical Time (Minutes): 40
--- NOTE | 2017-10-26 11:26 | PDOC PROGRESS REPORT ---
Subjective Progress Note for:: 10/26/17 Subjective:: Intubated but arousable Reason For Visit: DRUG OVERDOSE Physical Exam Vital Signs: Temp Pulse Resp BP Pulse Ox 100.2 F 95 19 128/85 H 98 10/26/17 10:00 10/26/17 10:00 10/26/17 10:00 10/26/17 10:00 10/26/17 11:21 Intake & Output 10/25/17 10/26/17 10/27/17 06:59 06:59 06:59 Intake Total 4956 3700 120 Output Total 2595 2250 865 Balance 2361 1450 -745 Weight 81 kg 82.9 kg General appearance: PRESENT: no acute distress, disheveled, obese Head exam: PRESENT: atraumatic, normocephalic Eye exam: PRESENT: conjunctiva pale, EOMI. ABSENT: nystagmus, periorbital swelling, scleral icterus Mouth exam: PRESENT: dry mucosa, neck supple, tongue midline, other - ET tube in place Neck exam: ABSENT: carotid bruit, JVD, lymphadenopathy, thyromegaly, tracheal deviation, tracheostomy Respiratory exam: PRESENT: decreased breath sounds, prolonged expiratory phas, rhonchi, unlabored. ABSENT: retraction, stridor Cardiovascular exam: PRESENT: RRR, +S1, +S2 Pulses: PRESENT: normal radial pulses GI/Abdominal exam: PRESENT: hypoactive bowel sounds, soft Gentrourinary exam: PRESENT: indwelling catheter Extremities exam: ABSENT: clubbing, joint swelling Musculoskeletal exam: ABSENT: deformity, dislocation Neurological exam: PRESENT: awake, oriented to person. ABSENT: oriented to place, oriented to time, oriented to situation Skin exam: PRESENT: dry, warm Results Laboratory Results: 10/26/17 04:29 10/26/17 04:29 10/25/17 10/26/17 10/26/17 15:46 04:29 04:29 WBC 11.2 H RBC 3.83 Hgb 12.3 Hct 36.0 MCV 94 MCH 32.0 MCHC 34.1 RDW 13.3 Plt Count 159 Seg Neutrophils % 85.5 H Lymphocytes % 7.7 L Monocytes % 6.6 Eosinophils % 0.0 Basophils % 0.2 Absolute Neutrophils 9.6 H Absolute Lymphocytes 0.9 Absolute Monocytes 0.7 Absolute Eosinophils 0.0 Absolute Basophils 0.0 Carbonic Acid HCO3/H2CO3 Ratio ABG pH ABG pCO2 ABG pO2 ABG HCO3 ABG O2 Saturation ABG Base Excess FiO2 Sodium 140.6 140.4 Potassium 4.0 3.2 L Chloride 112 H 109 H Carbon Dioxide 19 L 21 L Anion Gap 10 10 BUN 7 6 L Creatinine 0.56 0.49 L Est GFR ( Amer) > 60 > 60 Est GFR (Non-Af Amer) > 60 > 60 Glucose 98 107 Calcium 8.3 L 8.4 Phosphorus 2.4 L Magnesium 2.4 H 2.0 10/26/17 05:45 WBC RBC Hgb Hct MCV MCH MCHC RDW Plt Count Seg Neutrophils % Lymphocytes % Monocytes % Eosinophils % Basophils % Absolute Neutrophils Absolute Lymphocytes Absolute Monocytes Absolute Eosinophils Absolute Basophils Carbonic Acid 0.84 L HCO3/H2CO3 Ratio 25:1 ABG pH 7.50 H ABG pCO2 28.0 L ABG pO2 109.9 H ABG HCO3 21.1 ABG O2 Saturation 98.4 H ABG Base Excess -1.0 FiO2 28% Sodium Potassium Chloride Carbon Dioxide Anion Gap BUN Creatinine Est GFR ( Amer) Est GFR (Non-Af Amer) Glucose Calcium Phosphorus Magnesium 10/25/17 10/25/17 03:56 03:56 Creatine Kinase 656 H NT-Pro-B Natriuret Pep 873 Impressions: Head CT 10/24/17 00:00 IMPRESSION: NORMAL BRAIN CT WITHOUT CONTRAST. EVIDENCE OF ACUTE STROKE: NO. Chest X-Ray 10/26/17 06:00 IMPRESSION: 1 No significant interval change in the right infrahilar atelectasis or infiltrate. 2 Support tubes are in stable position. Assessment & Plan - Diagnosis (1) Acute respiratory failure Qualifiers: Respiratory failure complication: hypoxia Qualified Code(s): J96.01 - Acute respiratory failure with hypoxia Is this a current diagnosis for this admission?: Yes Plan: Unable to sustain or unwilling to sustain spontaneous respirations has returned to backup mode on pressure support and CPAP 3 (2) Bupropion overdose Is this a current diagnosis for this admission?: Yes - Time Total Critical Time (Minutes): 40
[2017-10-26] MEDS: PANTOPRAZOLE SODIUM 40 MG VIAL IV SCH ×2 (11:34→23:26)
--- NOTE | 2017-10-26 15:33 | EKG REPORT ---
SEVERITY:- ABNORMAL ECG - SINUS RHYTHM IVCD, CONSIDER ATYPICAL RBBB : Confirmed by: Andra Roy MD 26-Oct-2017 15:33:24
--- NOTE | 2017-10-26 15:33 | EKG REPORT ---
SEVERITY:- ABNORMAL ECG - SINUS RHYTHM RIGHT BUNDLE BRANCH BLOCK : Confirmed by: Andra Roy MD 26-Oct-2017 15:33:17
--- NOTE | 2017-10-26 15:33 | EKG REPORT ---
SEVERITY:- NORMAL ECG - SINUS RHYTHM : Confirmed by: Andra Roy MD 26-Oct-2017 15:33:14
--- NOTE | 2017-10-26 15:33 | EKG REPORT ---
SEVERITY:- NORMAL ECG - SINUS RHYTHM : Confirmed by: Andra Roy MD 26-Oct-2017 15:33:11
[2017-10-26] MEDS ORDERED: PIPERACILLIN/TAZOBACTAM 3.375 GM VIAL IV SCH (16:00)
[2017-10-26] MEDS: ACETAMINOPHEN 325 MG TABLET PO PRN (16:13)
[2017-10-26] MEDS: PIPERACILLIN SODIUM/TAZOBACTAM 3.375 GM in NORMAL SALINE 100 ML IV SCH ×2 (18:42→23:26)
--- NOTE | 2017-10-26 21:48 | PDOC PROGRESS REPORT ---
Subjective Progress Note for:: 10/26/17 Subjective:: 56 year old female who presented to the ED after swallowing 100 tablets of Wellbutrin and an unknown amount of Ativan. Poison control was contacted. Patient's initial EKG did show an elevated QRS duration to 140. Patient was treated with IV bicarb. Has been intubated for airway protection and sedated on propofol. She has a history of schizophrenia, bipolar disorder, OCD, depression and anxiety. She was described recently as drinking 4-5 glasses of wine with relatives. She does have an occasional alcohol use history. Patient was initially given IV fluid support and a bear hugger for hypothermia. Today and a sedation vacation was attempted and patient was not able to arouse sufficiently enough to remove her from the vent became apneic for periods of time. Patient is now re-sedated, but maintaining very minimalistic vent settings. Reason For Visit: DRUG OVERDOSE Physical Exam Vital Signs: Temp Pulse Resp BP Pulse Ox 100.8 F H 84 15 130/76 H 100 10/26/17 19:25 10/26/17 20:00 10/26/17 18:42 10/26/17 18:42 10/26/17 18:42 Intake & Output 10/25/17 10/26/17 10/27/17 06:59 06:59 06:59 Intake Total 4956 3700 1810 Output Total 2595 2250 3490 Balance 2361 1450 -1680 Weight 81 kg 82.9 kg General appearance: PRESENT: no acute distress, cooperative Head exam: PRESENT: atraumatic, normocephalic Eye exam: PRESENT: EOMI, PERRLA Ear exam: PRESENT: normal external ear exam. ABSENT: drainage Mouth exam: PRESENT: moist, neck supple Throat exam: ABSENT: tonsillar erythema, tonsillar exudate Neck exam: PRESENT: JVD. ABSENT: full ROM Respiratory exam: PRESENT: other - Coarse breath sounds heard on vent.. ABSENT : accessory muscle use, rhonchi, wheezes Cardiovascular exam: PRESENT: RRR, +S1, +S2 Pulses: PRESENT: normal radial pulses, normal dorsalis pedis pul Vascular exam: PRESENT: normal capillary refill. ABSENT: pallor GI/Abdominal exam: PRESENT: soft. ABSENT: mass Extremities exam: ABSENT: clubbing, joint swelling Musculoskeletal exam: PRESENT: full ROM. ABSENT: normal inspection - Adjacent like Neurological exam: PRESENT: alert - Sorry as weight where he fly to weekly, oriented to person, oriented to place, oriented to time, oriented to situation Psychiatric exam: PRESENT: other - Sedation, cannot evaluate Focused psych exam: PRESENT: other - Under sedation Skin exam: PRESENT: normal color. ABSENT: erythema - is, mottled - to help for drive his Results Laboratory Results: 10/26/17 04:29 10/26/17 04:29 10/26/17 10/26/17 10/26/17 04:29 04:29 05:45 WBC 11.2 H RBC 3.83 Hgb 12.3 Hct 36.0 MCV 94 MCH 32.0 MCHC 34.1 RDW 13.3 Plt Count 159 Seg Neutrophils % 85.5 H Lymphocytes % 7.7 L Monocytes % 6.6 Eosinophils % 0.0 Basophils % 0.2 Absolute Neutrophils 9.6 H Absolute Lymphocytes 0.9 Absolute Monocytes 0.7 Absolute Eosinophils 0.0 Absolute Basophils 0.0 Carbonic Acid 0.84 L HCO3/H2CO3 Ratio 25:1 ABG pH 7.50 H ABG pCO2 28.0 L ABG pO2 109.9 H ABG HCO3 21.1 ABG O2 Saturation 98.4 H ABG Base Excess -1.0 FiO2 28% Sodium 140.4 Potassium 3.2 L Chloride 109 H Carbon Dioxide 21 L Anion Gap 10 BUN 6 L Creatinine 0.49 L Est GFR ( Amer) > 60 Est GFR (Non-Af Amer) > 60 Glucose 107 Calcium 8.4 Phosphorus 2.4 L Magnesium 2.0 10/25/17 10/25/17 03:56 03:56 Creatine Kinase 656 H NT-Pro-B Natriuret Pep 873 Impressions: Head CT 10/24/17 00:00 IMPRESSION: NORMAL BRAIN CT WITHOUT CONTRAST. EVIDENCE OF ACUTE STROKE: NO. Chest X-Ray 10/26/17 06:00 IMPRESSION: 1 No significant interval change in the right infrahilar atelectasis or infiltrate. 2 Support tubes are in stable position. Assessment & Plan - Diagnosis (1) Bupropion overdose Is this a current diagnosis for this admission?: Yes Plan: Will need psychiatric evaluation after she comes off the vent. Continue to monitor her closely. EKG with normal QRS duration today. Continues to be intubated and sedated on the vent. Unable to do well enough on sedation vacation today with limited ability to participate and apneic periods noted. (2) Acute respiratory failure Qualifiers: Respiratory failure complication: hypoxia Qualified Code(s): J96.01 - Acute respiratory failure with hypoxia Is this a current diagnosis for this admission?: Yes Plan: Continue intubation, sedation and vent support. Need to monitor her closely in the ICU. (3) Altered mental status Qualifiers: Altered mental status type: stupor Qualified Code(s): R40.1 - Stupor Is this a current diagnosis for this admission?: Yes Plan: Currently sedated on propofol, will perform sedation vacation again tomorrow and attempt vent weaning again. (4) Polysubstance overdose Qualifiers: Encounter type: initial encounter Injury intent: intentional self-harm Qualified Code(s): T50.902A - Poisoning by unspecified drugs, medicaments and biological substances, intentional self-harm, initial encounter Is this a current diagnosis for this admission?: Yes Plan: Will benefit from counseling for drug use after this admission. Given her suicidal attempt will need psychiatric evaluation after she comes off sedation and is extubated. (5) Suicide attempt Is this a current diagnosis for this admission?: Yes Plan: Psychiatry evaluation will be needed after sedation is removed and extubation is performed. (6) Fever Is this a current diagnosis for this admission?: Yes Plan: Treating symptomatically with Tylenol. Cultures 2 taken. Concern for possible early aspiration during her unconscious admission. Chest x-ray not showing pneumonia at present. Will start empiric IV Zosyn and monitor.
--- NOTE | 2017-10-26 22:14 | EKG REPORT ---
SEVERITY:- NORMAL ECG - SINUS RHYTHM : Confirmed by: Lily Lara 26-Oct-2017 22:13:23
[2017-10-27] MEDS: PROPOFOL 1,000 MG/100 ML INFUS..BTL IV PRN ×2 (02:30→05:40)
[2017-10-27 04:03] LABS: ABSOLUTE LYMPHOCYTES (AUTO) 1.1 10^3/uL (0.5-4.7); ABSOLUTE MONOCYTES (AUTO) 0.6 10^3/uL (0.1-1.4); ABSOLUTE NEUT (AUTO) 7.3 10^3/uL (1.7-8.2); BASOPHILS % (AUTO) 0.4 % (0-2); EOSINOPHILS % (AUTO) 0.5 % (0-6); HEMATOCRIT 32.5 % (36.0-47.0); HEMOGLOBIN 11.3 g/dL (12.0-15.5); LYMPHOCYTES % (AUTO) 12.1 % (13-45); MEAN CORPUSCULAR HEMOGLOBIN 32.3 pg (27.0-33.4); MEAN CORPUSCULAR HGB CONC 34.7 g/dL (32.0-36.0); MEAN CORPUSCULAR VOLUME 93 fl (80-97); MONOCYTES % (AUTO) 6.9 % (3-13); PLATELET COUNT 138 10^3/uL (150-450); RED BLOOD COUNT 3.49 10^6/uL (3.72-5.28); RED CELL DISTRIBUTION WIDTH 13.2 % (11.5-14.0); SEGMENTED NEUTROPHILS % (AUTO) 80.1 % (42-78); TOTAL CELLS COUNTED % (AUTO) 100 %; WHITE BLOOD COUNT 9.1 10^3/uL (4.0-10.5)
[2017-10-27 04:14] LABS: ALANINE AMINOTRANSFERASE 41 U/L (9-52); ALBUMIN 2.8 g/dL (3.5-5.0); ALKALINE PHOSPHATASE 56 U/L (38-126); ANION GAP 8 (5-19); ASPARTATE AMINO TRANSFERASE 38 U/L (14-36); BILIRUBIN,DIRECT 0.3 mg/dL (0.0-0.4); BILIRUBIN,TOTAL 0.5 mg/dL (0.2-1.3); BLOOD UREA NITROGEN 4 mg/dL (7-20); CALCIUM 8.3 mg/dL (8.4-10.2); CARBON DIOXIDE 25 mmol/L (22-30); CHLORIDE 110 mmol/L (98-107); GLUCOSE 100 mg/dL (75-110); PHOSPHORUS 2.3 mg/dL (2.5-4.5); SODIUM 143.2 mmol/L (137-145); TOTAL PROTEIN 4.9 g/dL (6.3-8.2)
[2017-10-27 04:40] LABS: POTASSIUM 2.6 mmol/L (3.6-5.0)
[2017-10-27] MEDS: PIPERACILLIN SODIUM/TAZOBACTAM 3.375 GM in NORMAL SALINE 100 ML IV SCH ×4 (05:10→23:43)
[2017-10-27] MEDS: ENOXAPARIN SODIUM INJ 30 MG/0.3 ML DISP.SYRIN SUBCUT SCH ×2 (05:11→18:59)
[2017-10-27] MEDS: POTASSIUM CHLORIDE 20 MEQ/50 ML RTU IV SCH ×4 (05:11→11:30)
[2017-10-27 06:04] LABS: ARTERIAL BLOOD BASE EXCESS 1.2 mmol/L; ARTERIAL BLOOD H2CO3 0.89 mmol/L (1.05-1.35); ARTERIAL BLOOD HCO3 23.5 mmol/L (20-26); ARTERIAL BLOOD O2 SATURATION 98.2 % (94-98); ARTERIAL BLOOD PCO2 29.7 mmHg (35-45); ARTERIAL BLOOD PH 7.52 (7.35-7.45); ARTERIAL BLOOD PO2 102.6 mmHg (80-100); ARTERIAL BLOOD TOTAL CO2 24.5 mmol/L (21-25)
[2017-10-27 06:05] LABS: ARTERIAL BLOOD FIO2 28%
--- NOTE | 2017-10-27 07:23 | RADIOLOGY REPORT (SQ) ---
EXAM DESCRIPTION: XR CHEST 1 VIEW COMPLETED DATE/TME: 10/27/2017 06:00 CLINICAL HISTORY: 56 years Female, resp failure COMPARISON: One day prior. NUMBER OF VIEWS/TECHNIQUE: 1/AP FINDINGS: Clear lungs, normal cardiac silhouette, tip of an endotracheal tube is 5.7 cm from the reyna, adequate appearing enteric tube obscured distally. No pneumothorax. No acute bone defect. IMPRESSION: No significant change.
[2017-10-27] MEDS ORDERED: POTASSI CL 20 MEQ/50 ML RIDER 20 MEQ/50 ML RTUPB IV SCH ×2 (08:00→09:15)
--- NOTE | 2017-10-27 08:38 | EKG REPORT ---
SEVERITY:- NORMAL ECG - SINUS RHYTHM : Confirmed by: Lily Lara 27-Oct-2017 08:38:17
[2017-10-27] MEDS ORDERED: FAMOTIDINE INJ/PF 20 MG/2 ML SDV IV SCH (10:00)
[2017-10-27 11:28] LABS: ARTERIAL BLOOD FIO2 28%; ARTERIAL BLOOD H2CO3 0.88 mmol/L (1.05-1.35); ARTERIAL BLOOD HCO3 21.5 mmol/L (20-26); ARTERIAL BLOOD O2 SATURATION 97.8 % (94-98); ARTERIAL BLOOD PCO2 29.3 mmHg (35-45); ARTERIAL BLOOD PH 7.48 (7.35-7.45); ARTERIAL BLOOD PO2 95.7 mmHg (80-100); ARTERIAL BLOOD TOTAL CO2 22.4 mmol/L (21-25)
[2017-10-27] MEDS: PANTOPRAZOLE SODIUM 40 MG VIAL IV SCH ×2 (11:31→23:44)
[2017-10-27] MEDS ORDERED: SUCRALFATE SUSP 1 GM/10 ML UDCUP NG SCH (12:00)
[2017-10-27] MEDS: NORMAL SALINE 1000 ML 1,000 ML IV PRN ×2 (14:44→21:57)
--- NOTE | 2017-10-27 15:51 | RADIOLOGY REPORT (SQ) ---
EXAM DESCRIPTION: KUB/ABDOMEN (SINGLE VIEW) COMPLETED DATE/TIME: 10/27/2017 3:37 pm REASON FOR STUDY: Abdominal pain COMPARISON: None. NUMBER OF VIEWS: One view. TECHNIQUE: Supine radiographic image of the abdomen acquired. LIMITATIONS: None. FINDINGS: BOWEL GAS PATTERN: Normal bowel gas pattern. No dilated loops. CALCIFICATIONS: No suspicious calcifications. SOFT TISSUES: No gross mass or suggestion of organomegaly. HARDWARE: None in the abdomen. BONES: No acute fracture. No worrisome bone lesions. OTHER: No other significant finding. IMPRESSION: NO RADIOGRAPHIC EVIDENCE FOR ACUTE ABDOMINAL DISEASE. TECHNICAL DOCUMENTATION: JOB ID: [id number] [employer]- All Rights Reserved Reading location - IP/workstation name: [email or web address]
[2017-10-27] MEDS: SUCRALFATE SUSP 1 GM/10 ML UDCUP PO SCH ×2 (18:59→23:44)
[2017-10-27] MEDS ORDERED: POTASSIUM CHLORIDE 10 MEQ TABLET.SA PO ONE (19:30)
--- NOTE | 2017-10-27 21:39 | PDOC PROGRESS REPORT ---
Subjective Progress Note for:: 10/27/17 Subjective:: 56 year old female who presented to the ED after swallowing 100 tablets of Wellbutrin and an unknown amount of Ativan. Poison control was contacted. Patient's initial EKG did show an elevated QRS duration to 140. Patient was treated with IV bicarb. Has been intubated for airway protection and sedated on propofol. She has a history of schizophrenia, bipolar disorder, OCD, depression and anxiety. Sedation vacation this AM. Did well and was able to be extubated. IVC papers signed. Psychiatry consulted for eval of her SI. Spoke with the at length. He wants her to be placed back on antipsychotic medications. Reason For Visit: DRUG OVERDOSE Physical Exam Vital Signs: Temp Pulse Resp BP Pulse Ox 100.4 F 98 25 H 142/89 H 95 10/27/17 18:00 10/27/17 19:49 10/27/17 18:00 10/27/17 18:00 10/27/17 18:00 Intake & Output 10/26/17 10/27/17 10/28/17 06:59 06:59 06:59 Intake Total 3700 3390 1682 Output Total 2250 5240 5250 Balance 1450 -1850 -3568 Weight 82.9 kg 80 kg General appearance: PRESENT: no acute distress, obese Head exam: PRESENT: atraumatic, normocephalic Eye exam: PRESENT: PERRLA. ABSENT: scleral icterus Ear exam: PRESENT: normal external ear exam. ABSENT: drainage Mouth exam: PRESENT: moist, neck supple Throat exam: PRESENT: tonsillar exudate. ABSENT: tonsillar erythema Neck exam: ABSENT: tenderness, thyromegaly Respiratory exam: ABSENT: rales, rhonchi, wheezes Cardiovascular exam: PRESENT: RRR, +S1, +S2 Pulses: PRESENT: normal radial pulses, normal dorsalis pedis pul Vascular exam: PRESENT: normal capillary refill. ABSENT: pallor GI/Abdominal exam: PRESENT: normal bowel sounds, soft. ABSENT: rigid Extremities exam: ABSENT: clubbing, tenderness Musculoskeletal exam: PRESENT: full ROM. ABSENT: deformity Neurological exam: PRESENT: alert, awake Psychiatric exam: ABSENT: anxious, flat affect Focused psych exam: ABSENT: delusional, paranoid Skin exam: PRESENT: normal color. ABSENT: mottled Results Laboratory Results: 10/27/17 03:53 10/27/17 16:05 10/27/17 10/27/17 10/27/17 03:53 03:53 05:35 WBC 9.1 RBC 3.49 L Hgb 11.3 L Hct 32.5 L MCV 93 MCH 32.3 MCHC 34.7 RDW 13.2 Plt Count 138 L Seg Neutrophils % 80.1 H Lymphocytes % 12.1 L Monocytes % 6.9 Eosinophils % 0.5 Basophils % 0.4 Absolute Neutrophils 7.3 Absolute Lymphocytes 1.1 Absolute Monocytes 0.6 Absolute Eosinophils 0.0 Absolute Basophils 0.0 Carbonic Acid 0.89 L HCO3/H2CO3 Ratio 26:1 ABG pH 7.52 H ABG pCO2 29.7 L ABG pO2 102.6 H ABG HCO3 23.5 ABG O2 Saturation 98.2 H ABG Base Excess 1.2 FiO2 28% Sodium 143.2 Potassium 2.6 L* Chloride 110 H Carbon Dioxide 25 Anion Gap 8 BUN 4 L Creatinine 0.48 L Est GFR ( Amer) > 60 Est GFR (Non-Af Amer) > 60 Glucose 100 Calcium 8.3 L Phosphorus 2.3 L Magnesium 2.0 Total Bilirubin 0.5 AST 38 H ALT 41 Alkaline Phosphatase 56 Total Protein 4.9 L Albumin 2.8 L 10/27/17 10/27/17 11:05 16:05 WBC RBC Hgb Hct MCV MCH MCHC RDW Plt Count Seg Neutrophils % Lymphocytes % Monocytes % Eosinophils % Basophils % Absolute Neutrophils Absolute Lymphocytes Absolute Monocytes Absolute Eosinophils Absolute Basophils Carbonic Acid 0.88 L HCO3/H2CO3 Ratio 24:1 ABG pH 7.48 H ABG pCO2 29.3 L ABG pO2 95.7 ABG HCO3 21.5 ABG O2 Saturation 97.8 ABG Base Excess -1.0 FiO2 28% Sodium Potassium 3.3 L Chloride Carbon Dioxide Anion Gap BUN Creatinine Est GFR ( Amer) Est GFR (Non-Af Amer) Glucose Calcium Phosphorus Magnesium Total Bilirubin AST ALT Alkaline Phosphatase Total Protein Albumin 10/25/17 10/25/17 03:56 03:56 Creatine Kinase 656 H NT-Pro-B Natriuret Pep 873 Impressions: Head CT 10/24/17 00:00 IMPRESSION: NORMAL BRAIN CT WITHOUT CONTRAST. EVIDENCE OF ACUTE STROKE: NO. KUB X-Ray 10/27/17 00:00 IMPRESSION: NO RADIOGRAPHIC EVIDENCE FOR ACUTE ABDOMINAL DISEASE. Chest X-Ray 10/27/17 06:00 IMPRESSION: No significant change. Assessment & Plan - Diagnosis (1) Bupropion overdose Is this a current diagnosis for this admission?: Yes Plan: Holding Wellbutrin. consulting psychiatry. IVC papers signed today. Now extubated. Poison control wanting daily EKGs, but they have normalized. stable vital signs. (2) Acute respiratory failure Qualifiers: Respiratory failure complication: hypoxia Qualified Code(s): J96.01 - Acute respiratory failure with hypoxia Is this a current diagnosis for this admission?: Yes Plan: Now extubated, continue to monitor in the ICU at present. Can likely transfer out soon, or per protocol for SI patients. Continue supportive care. (3) Altered mental status Qualifiers: Altered mental status type: stupor Qualified Code(s): R40.1 - Stupor Is this a current diagnosis for this admission?: Yes Plan: Appears to be recovering to her baseline. (4) Polysubstance overdose Qualifiers: Encounter type: initial encounter Injury intent: intentional self-harm Qualified Code(s): T50.902A - Poisoning by unspecified drugs, medicaments and biological substances, intentional self-harm, initial encounter Is this a current diagnosis for this admission?: Yes Plan: Will need psychiatric support and follow up in the outpatient setting. psychiatry will be consulted (5) Suicide attempt Is this a current diagnosis for this admission?: Yes Plan: Stated that the pills were an intentional attempt to end her life. psych to follow. May benefit with transfer to inpatient psych center (6) Fever Is this a current diagnosis for this admission?: Yes Plan: Improved with treatment for possible early aspiration, given her altered mental status. No aspiration pna found on cxr. continue IV Zosyn for now. Temperature elevation improved. - Time Time Spent with patient: 15-24 minutes - Inpatient Certification I certify that my determination is in accordance with my understanding of Medicare's requirements for reasonable and necessary INPATIENT services [42 CFR 412.3e].: Yes Medical Necessity: Need Close Monitoring Due to Risk of Patient Decompensation
[2017-10-27] MEDS: ACETAMINOPHEN 325 MG TABLET PO PRN (21:57)
--- NOTE | 2017-10-27 22:40 | EKG REPORT ---
SEVERITY:- NORMAL ECG - SINUS RHYTHM : Confirmed by: Lily Lara 27-Oct-2017 22:39:56
[2017-10-28 04:26] LABS: ABSOLUTE EOSINOPHILS # (AUTO) 0.2 10^3/uL (0.0-0.6); ABSOLUTE LYMPHOCYTES (AUTO) 1.6 10^3/uL (0.5-4.7); ABSOLUTE MONOCYTES (AUTO) 0.6 10^3/uL (0.1-1.4); ABSOLUTE NEUT (AUTO) 7.2 10^3/uL (1.7-8.2); BASOPHILS % (AUTO) 0.3 % (0-2); HEMATOCRIT 34.3 % (36.0-47.0); LYMPHOCYTES % (AUTO) 16.9 % (13-45); MEAN CORPUSCULAR HEMOGLOBIN 32.5 pg (27.0-33.4); MEAN CORPUSCULAR HGB CONC 34.9 g/dL (32.0-36.0); MEAN CORPUSCULAR VOLUME 93 fl (80-97); MONOCYTES % (AUTO) 6.3 % (3-13); PLATELET COUNT 159 10^3/uL (150-450); RED BLOOD COUNT 3.68 10^6/uL (3.72-5.28); RED CELL DISTRIBUTION WIDTH 13.1 % (11.5-14.0); SEGMENTED NEUTROPHILS % (AUTO) 74.5 % (42-78); TOTAL CELLS COUNTED % (AUTO) 100 %; WHITE BLOOD COUNT 9.6 10^3/uL (4.0-10.5)
[2017-10-28 04:46] LABS: ANION GAP 8 (5-19); BLOOD UREA NITROGEN 4 mg/dL (7-20); CALCIUM 8.7 mg/dL (8.4-10.2); CARBON DIOXIDE 25 mmol/L (22-30); CHLORIDE 111 mmol/L (98-107); GLUCOSE 90 mg/dL (75-110); PHOSPHORUS 3.1 mg/dL (2.5-4.5); POTASSIUM 3.6 mmol/L (3.6-5.0); SODIUM 144.3 mmol/L (137-145)
[2017-10-28 05:20] LABS: ARTERIAL BLOOD BASE EXCESS 1.3 mmol/L; ARTERIAL BLOOD O2 SATURATION 96.4 % (94-98); ARTERIAL BLOOD PCO2 36.5 mmHg (35-45); ARTERIAL BLOOD PH 7.45 (7.35-7.45); ARTERIAL BLOOD PO2 80.4 mmHg (80-100); ARTERIAL BLOOD TOTAL CO2 26.1 mmol/L (21-25)
[2017-10-28 05:21] LABS: ARTERIAL BLOOD FIO2 2L
[2017-10-28] MEDS: SUCRALFATE SUSP 1 GM/10 ML UDCUP PO SCH ×3 (05:27→17:26)
[2017-10-28] MEDS: ENOXAPARIN SODIUM INJ 30 MG/0.3 ML DISP.SYRIN SUBCUT SCH ×2 (05:27→17:24)
[2017-10-28] MEDS: PIPERACILLIN SODIUM/TAZOBACTAM 3.375 GM in NORMAL SALINE 100 ML IV SCH ×3 (05:28→17:25)
--- NOTE | 2017-10-28 06:37 | RADIOLOGY REPORT (SQ) ---
EXAM DESCRIPTION: XR CHEST 1 VIEW COMPLETED DATE/TME: 10/28/2017 06:00 CLINICAL HISTORY: 56 years Female, resp failure COMPARISON: One day prior. NUMBER OF VIEWS/TECHNIQUE: 1/AP FINDINGS: Prominent interstitium, normal cardiac silhouette. No pneumothorax. No acute bone defect. IMPRESSION: No significant change.
[2017-10-28] MEDS: ACETAMINOPHEN 325 MG TABLET PO PRN (09:29)
--- NOTE | 2017-10-28 09:38 | EKG REPORT ---
SEVERITY:- NORMAL ECG - SINUS RHYTHM : Confirmed by: Lily Lara 28-Oct-2017 09:37:19
[2017-10-28] MEDS ORDERED: SUMATRIPTAN SUCCINATE 25 MG TABLET PO PRN (09:46)
[2017-10-28] MEDS: PANTOPRAZOLE SODIUM 40 MG VIAL IV SCH (11:29)
--- NOTE | 2017-10-28 12:03 | PSYCHOLOGICAL NOTE ---
Psych Note - Psych Note Psych Note: Reason for consult: Intentional overdose Alfonzo Lee, , The patient is a 56-year-old female with a past medical history of depression and anxiety who presents by EMS after overdosing on bupropion and Ativan. This was an apparent suicide attempt. Patient was extubated today. She disclosed that she took "too many pills" and reports this was an attempt at suicide. Patient was put under IVC paperwork and will be re-evaluated.
[2017-10-28] MEDS: NORMAL SALINE 1000 ML 1,000 ML IV PRN (13:29)
--- NOTE | 2017-10-28 13:34 | PSYCHOLOGICAL NOTE ---
Psych Note - Psych Note Psych Note: Reason for consult: Intentional overdose Alfonzo Lee, , The patient is a 56-year-old female with a past medical history of depression and anxiety who presents by EMS after overdosing on bupropion and Ativan. This was an apparent suicide attempt. Patient confirms she overdosed intentionally but denies true intent; "I was an impulse that I acted on...I knew right away I should not have done it and told and asked to be brought to the hospital." She report she has an outpatient therapist, Dr. Fleming, in [place]. patient is currently in the area visiting family, she lives in [place] with her . Patient's disclosed he doesn't believe that patient is truly suicidal. He disclosed that the patient has been dealing with suicidal ideation and feels it may be connected to the Wellbutrin however but she has been very proactive ensuring and she does not do anything however this time he feels that it was possible because of the few drinks she had she became too impulsive. He reports that "right after ... Just minutes after she took the medication she said call 911." He disclosed that she has been working with her provider adjustment her medications. She has been seeing her provider for 10 years. She is currently on Welbutrin 450mg Daily, Lexapro 30 mg daily, Navane 1 mg twice daily, and Ativan 1 mg daily. He reported he has been in contact with Dr. Fleming and the patient will being going to her provider when they get home. He continued to report that she has been out of her Navane because of mess up with refill. He reports they are currently here visiting family on vacation in hopes that the patient can enjoy some time with family before they have to leave on Thursday. Patient is alert and orientated to person, place, time and circumstance. Mood is euthymic with congruent affect. Patient reports intentional overdose as an impulse but immediately requested assistance after taking the medication. Patient denies continued suicidal ideation. Patient denies homicidal ideation. Delusions are absent behaviors congruent with an intact reality based presentation i.e. organized and linear thought process. Eye contact was well- maintained. Conversational speech was slow and low toned as patient is still struggling with the after effects of being extubated. Intellectual abilities appear to be within average range. Attention and concentration were good. Insight, judgment, impulse control are fair. Medication recommendations per [facility]'s contracted psychiatrist Dr. Razia FELIX are as follows 1. Zyprexa 2.5mg in the morning and 5mg at night, mood regulation and impulse control 2. Cogentin 1mg daily for prevention of possible side effects from the zyprexa. Diagnosis 311 (F32.9) unspecified depressive disorder per history 300.00 (F41.9) unspecified anxiety disorder per history Impression\\plan: Patient is recommended for rescind of IVC and is considered cleared from acute psychiatric services. Patient no longer meets IVC criteria per [place] GS 122C. Patient denies current suicidal ideation in both patient and report she is under the care of her mental health provider and is undergoing medication changes. Patient is currently here in [place] visiting family and will be returning home 12/31/2017 to [place]. Medication recommendations have been provided it is recommended the patient take these medications until she can return to her outpatient mental health provider in [place]. Dr. Silver was consulted and the care management this patient; attending physician is agreement with recommendations and disposition.
[2017-10-28] MEDS: SUMATRIPTAN SUCCINATE 50 MG TABLET PO PRN ×2 (17:26→20:51)
[2017-10-28] MEDS ORDERED: BENZTROPINE MESYLATE 1 MG TABLET PO SCH ×2 (18:00→22:00)
--- NOTE | 2017-10-28 20:07 | PDOC PROGRESS REPORT ---
Subjective Progress Note for:: 10/28/17 Subjective:: Extubated yesterday, 11/26/17. Doing much better, denies suicidal ideation at this time, no visual hallucinations or auditory hallucinations. at bedside. Patient also has been followed up by psych, the evaluation appreciated. Reason For Visit: DRUG OVERDOSE Physical Exam Vital Signs: Temp Pulse Resp BP Pulse Ox 99.0 F 88 18 128/87 H 97 10/28/17 06:00 10/28/17 09:23 10/28/17 18:00 10/28/17 17:43 10/28/17 18:00 Intake & Output 10/27/17 10/28/17 10/29/17 06:59 06:59 06:59 Intake Total 3390 6685 2449 Output Total 7350 8905 2100 Balance -6130 -5687 349 Weight 80 kg 75.2 kg GEN: NAD, well-developed, well-nourished CV: RRR, NL S1S2 LUNGS: CTA bilaterally ABDOMEN Soft, NT, +BS EXTERMITIES: No e/c/c NEURO: Alert, oriented 3, nonfocal Results Laboratory Results: 10/28/17 03:58 10/28/17 03:58 10/28/17 10/28/17 10/28/17 03:58 03:58 05:10 WBC 9.6 RBC 3.68 L Hgb 12.0 Hct 34.3 L MCV 93 MCH 32.5 MCHC 34.9 RDW 13.1 Plt Count 159 Seg Neutrophils % 74.5 Lymphocytes % 16.9 Monocytes % 6.3 Eosinophils % 2.0 Basophils % 0.3 Absolute Neutrophils 7.2 Absolute Lymphocytes 1.6 Absolute Monocytes 0.6 Absolute Eosinophils 0.2 Absolute Basophils 0.0 Carbonic Acid 1.10 HCO3/H2CO3 Ratio 22:1 ABG pH 7.45 ABG pCO2 36.5 ABG pO2 80.4 ABG HCO3 25.0 ABG O2 Saturation 96.4 ABG Base Excess 1.3 FiO2 2L Sodium 144.3 Potassium 3.6 Chloride 111 H Carbon Dioxide 25 Anion Gap 8 BUN 4 L Creatinine 0.50 L Est GFR ( Amer) > 60 Est GFR (Non-Af Amer) > 60 Glucose 90 Calcium 8.7 Phosphorus 3.1 Magnesium 2.1 Albumin 3.0 L 10/26/17 15:35 Tracheal Aspirate Gram Stain - Final 10/26/17 15:35 Tracheal Aspirate Sputum Culture - Final Staphylococcus Aureus Normal Lita Absent 10/25/17 10/25/17 03:56 03:56 Creatine Kinase 656 H NT-Pro-B Natriuret Pep 873 Impressions: Head CT 10/24/17 00:00 IMPRESSION: NORMAL BRAIN CT WITHOUT CONTRAST. EVIDENCE OF ACUTE STROKE: NO. KUB X-Ray 10/27/17 00:00 IMPRESSION: NO RADIOGRAPHIC EVIDENCE FOR ACUTE ABDOMINAL DISEASE. Chest X-Ray 10/28/17 06:00 IMPRESSION: No significant change. Assessment & Plan - Plan Summary Plan Summary: (1) Bupropion overdose Is this a current diagnosis for this admission?: Yes Plan: Holding Wellbutrin. consulting psychiatry. IVC papers signed today. Now extubated. Poison control wanting daily EKGs, but they have normalized. stable vital signs. (2) Acute respiratory failure Qualifiers: Respiratory failure complication: hypoxia Qualified Code(s): J96.01 - Acute respiratory failure with hypoxia Is this a current diagnosis for this admission?: Yes Plan: Remained stable status post extubation, transferred to telemetry. Continue supportive care. (3) Altered mental status Qualifiers: Altered mental status type: stupor Qualified Code(s): R40.1 - Stupor Is this a current diagnosis for this admission?: Yes Plan: Appears to be recovering to her baseline. (4) Polysubstance overdose Qualifiers: Encounter type: initial encounter Injury intent: intentional self-harm Qualified Code(s): T50.902A - Poisoning by unspecified drugs, medicaments and biological substances, intentional self-harm, initial encounter Is this a current diagnosis for this admission?: Yes Plan: Psych evaluation appreciated. IVC lifted per psych recommendation. (5) Suicide attempt Is this a current diagnosis for this admission?: Yes Plan: Psych okay with discharging patient to follow-up with her psychiatrist in [place] when medically stable. (6) Fever Is this a current diagnosis for this admission?: Yes Plan: Improved. Leukocytosis resolved. No pneumonia on chest x-ray. We will discontinue Zosyn.
[2017-10-28] MEDS ORDERED: OLANZAPINE 5 MG TABLET PO SCH (22:00)
[2017-10-29] MEDS: SUCRALFATE SUSP 1 GM/10 ML UDCUP PO SCH ×4 (00:58→17:59)
[2017-10-29] MEDS: PANTOPRAZOLE SODIUM 40 MG VIAL IV SCH ×2 (00:58→11:54)
[2017-10-29 04:40] LABS: ANION GAP 13 (5-19); BLOOD UREA NITROGEN 4 mg/dL (7-20); CALCIUM 9.4 mg/dL (8.4-10.2); CARBON DIOXIDE 26 mmol/L (22-30); CHLORIDE 110 mmol/L (98-107); GLUCOSE 88 mg/dL (75-110); POTASSIUM 3.1 mmol/L (3.6-5.0); SODIUM 148.9 mmol/L (137-145)
[2017-10-29 04:41] LABS: ABSOLUTE EOSINOPHILS # (AUTO) 0.2 10^3/uL (0.0-0.6); ABSOLUTE LYMPHOCYTES (AUTO) 1.9 10^3/uL (0.5-4.7); ABSOLUTE MONOCYTES (AUTO) 0.6 10^3/uL (0.1-1.4); ABSOLUTE NEUT (AUTO) 4.6 10^3/uL (1.7-8.2); BASOPHILS % (AUTO) 0.4 % (0-2); EOSINOPHILS % (AUTO) 2.6 % (0-6); HEMATOCRIT 37.4 % (36.0-47.0); HEMOGLOBIN 13.1 g/dL (12.0-15.5); LYMPHOCYTES % (AUTO) 25.6 % (13-45); MEAN CORPUSCULAR HEMOGLOBIN 32.7 pg (27.0-33.4); MEAN CORPUSCULAR VOLUME 93 fl (80-97); MONOCYTES % (AUTO) 8.6 % (3-13); PLATELET COUNT 171 10^3/uL (150-450); RED BLOOD COUNT 4.01 10^6/uL (3.72-5.28); RED CELL DISTRIBUTION WIDTH 13.2 % (11.5-14.0); SEGMENTED NEUTROPHILS % (AUTO) 62.8 % (42-78); TOTAL CELLS COUNTED % (AUTO) 100 %; WHITE BLOOD COUNT 7.3 10^3/uL (4.0-10.5)
[2017-10-29] MEDS: ENOXAPARIN SODIUM INJ 30 MG/0.3 ML DISP.SYRIN SUBCUT SCH ×2 (05:18→17:59)
[2017-10-29] MEDS: NORMAL SALINE 1000 ML 1,000 ML IV PRN (08:35)
[2017-10-29] MEDS ORDERED: POTASSI CL 20 MEQ/50 ML RIDER 20 MEQ/50 ML RTUPB IV ONE (09:30)
[2017-10-29] MEDS ORDERED: POTASSIUM CHLORIDE 10 MEQ TABLET.SA PO ONE ×2 (09:30→15:00)
[2017-10-29] MEDS ORDERED: OLANZAPINE 2.5 MG TABLET PO SCH (10:00)
[2017-10-29] MEDS ORDERED: POTASSIUM CHLORIDE 20 MEQ/50 ML RTU IV ONE (15:30)
[2017-10-29 18:45] VITALS: BP 141/79
--- NOTE | 2017-10-29 18:48 | PDOC DISCHARGE SUMMARY ---
General - Admit/Disc Date/PCP Admission Date/Primary Care Provider: 10/24/17 09:49 Discharge Date: 10/29/17 - Discharge Diagnosis (1) Acute respiratory failure Is this a current diagnosis for this admission?: Yes (2) Altered mental status Is this a current diagnosis for this admission?: Yes (3) Bupropion overdose Is this a current diagnosis for this admission?: Yes (4) Fever Is this a current diagnosis for this admission?: Yes (5) Polysubstance overdose Is this a current diagnosis for this admission?: Yes (6) Suicide attempt Is this a current diagnosis for this admission?: Yes - Additional Information Resuscitation Status: Full Code Discharge Diet: As Tolerated Discharge Activity: Activity As Tolerated Prescriptions: Benztropine Mesylate [Cogentin 1 mg Tablet] 1 mg PO QHS 15 Days #15 tablet Olanzapine [Zyprexa 2.5 mg Tablet] 2.5 mg PO ASDIR 15 Days #45 tablet Home Medications: Benztropine Mesylate [Cogentin 1 mg Tablet] 1 mg PO QHS 15 Days #15 tablet 10/29 Olanzapine [Zyprexa 2.5 mg Tablet] 2.5 mg PO ASDIR 15 Days #45 tablet 10/29/17 History of Present Illness History of Present Illness: DASHA MATOS is a 56 year old female Physical Exam Vital Signs: Temp Pulse Resp BP Pulse Ox 98.2 F 74 16 141/79 H 96 10/29/17 18:43 10/29/17 18:43 10/29/17 18:43 10/29/17 18:43 10/29/17 18:43 Intake & Output 10/28/17 10/29/17 10/30/17 06:59 06:59 06:59 Intake Total 2862 3749 920 Output Total 0438 7650 620 Balance -4610 -401 300 Weight 75.2 kg 77.8 kg Results Laboratory Results: 10/29/17 03:39 10/29/17 18:05 10/29/17 10/29/17 10/29/17 03:39 03:39 13:05 WBC 7.3 RBC 4.01 Hgb 13.1 Hct 37.4 MCV 93 MCH 32.7 MCHC 35.0 RDW 13.2 Plt Count 171 Seg Neutrophils % 62.8 Lymphocytes % 25.6 Monocytes % 8.6 Eosinophils % 2.6 Basophils % 0.4 Absolute Neutrophils 4.6 Absolute Lymphocytes 1.9 Absolute Monocytes 0.6 Absolute Eosinophils 0.2 Absolute Basophils 0.0 Sodium 148.9 H Potassium 3.1 L 3.1 L Chloride 110 H Carbon Dioxide 26 Anion Gap 13 BUN 4 L Creatinine 0.58 Est GFR ( Amer) > 60 Est GFR (Non-Af Amer) > 60 Glucose 88 Calcium 9.4 10/29/17 18:05 WBC RBC Hgb Hct MCV MCH MCHC RDW Plt Count Seg Neutrophils % Lymphocytes % Monocytes % Eosinophils % Basophils % Absolute Neutrophils Absolute Lymphocytes Absolute Monocytes Absolute Eosinophils Absolute Basophils Sodium Potassium 4.6 D Chloride Carbon Dioxide Anion Gap BUN Creatinine Est GFR ( Amer) Est GFR (Non-Af Amer) Glucose Calcium 10/25/17 10/25/17 03:56 03:56 Creatine Kinase 656 H NT-Pro-B Natriuret Pep 873 Impressions: Head CT 10/24/17 00:00 IMPRESSION: NORMAL BRAIN CT WITHOUT CONTRAST. EVIDENCE OF ACUTE STROKE: NO. KUB X-Ray 10/27/17 00:00 IMPRESSION: NO RADIOGRAPHIC EVIDENCE FOR ACUTE ABDOMINAL DISEASE. Chest X-Ray 10/28/17 06:00 IMPRESSION: No significant change.
== END 2017-10-29 19:30 | disposition home or self-care (01) | DRG 917 ==
LOC: ER 00:12 → EH 09:49 → ICU 11:45 → 5 10-28 21:15
PROVIDERS: ADMIT Internal Medicine; ATTEND Internal Medicine
PROC: 5A1945Z Respiratory Ventilation, 24-96 Consecutive Hours (ICD-10-PCS; principal; 2017-10-24)
PROC: 0BH17EZ Insertion of Endotracheal Airway into Trachea, Via Natural or Artificial Opening (ICD-10-PCS; 2017-10-24)
PROC: 3E0F73Z Introduction of Anti-inflammatory into Respiratory Tract, Via Natural or Artificial Opening (ICD-10-PCS; 2017-10-24)
DX: T43.292A Poisoning by other antidepressants, intentional self-harm, initial encounter (principal); J96.01 Acute respiratory failure with hypoxia; T42.4X2A Poisoning by benzodiazepines, intentional self-harm, initial encounter; Z78.1 Physical restraint status; I10 Essential (primary) hypertension; F32.9 Major depressive disorder, single episode, unspecified; I45.81 Long QT syndrome; F25.0 Schizoaffective disorder, bipolar type; F42.9 Obsessive-compulsive disorder, unspecified; F41.9 Anxiety disorder, unspecified; R40.1 Stupor; Z82.49 Family history of ischemic heart disease and other diseases of the circulatory system
CPT/HCPCS: 36415; 36600; 70450; 71045; 74018; 80048; 80053; 80069; 80076; 80307; 81001; 81025; 82550; 82803; 83036; 83690; 83735; 83880; 84100; 84132; 84443; 84478; 85025; 85610; 85730; 87040; 87070; 87077; 87086; 87186; 87205; 92950; 93005; 93010; 94002; 94003; 96360; 96361; 99291; J0330; J1650; J2060; J2543; J2704; J3475; J3480; J3490; J7030; S0164